=== PATIENT | male | born 1990 | race Two or more races ===

== ENCOUNTER 2020-03-12 14:54 | Inpatient (IN) | payer OTHER, SELFPAY ==
[2020-03-12 15:36] VITALS: BP 133/87; PULSE 86; RESP 18; TEMP 36.6; O2SAT 100; BMI 21.5
[2020-03-12 16:36] LABS: Glucose Urine UA NEG (NEG); Leukocyte Esterase Urine NEG (NEG); Nitrite Urine NEG (NEG); Urine Blood NEG (NEG); Urine Ketones NEG (NEG); Urine Protein NEG (NEG-TRACE)
[2020-03-12 16:52] LABS: Appearance Urine CLEAR; Color Urine YELLOW
[2020-03-12 16:57] LABS: Amphetamine Screen Urine Not Detected (Not Detect); Barbiturates, Urine Not Detected (Not Detect); Benzodiazepines Screen Urine Not Detected (Not Detect); Cannabinoid Screen Urine POSITIVE (Not Detect); Cocaine Screen Urine Not Detected (Not Detect); Opiate Screen Urine Not Detected (Not Detect); Phencyclidine Screen Urine Not Detected (Not Detect)
--- NOTE | 2020-03-12 18:52 | PC.NURSE ---
Call Mandy from [facility] if/when patient is discharged or transfered. [phone]
--- NOTE | 2020-03-12 20:01 | PC.NURSE ---
Patient was seen by provider, ordered N consult, N faxed/pending confirmation. Per provider patient is delusional thinking they are people out there to get him. DCF workers are here with patient talking, patient engaged. Will continue to monitor.
[2020-03-12 20:42] LABS: MANUAL DIFF FLAG NO
[2020-03-12 20:43] LABS: Basophils Absolute Auto 0.1 X10*3/uL (0.0-0.2); Basophils Percent Auto 0.5 % (0-2); Eosinophils Absolute Auto 0.2 X10*3/uL (0.0-0.4); Eosinophils Percent Auto 1.7 % (0-4); Hematocrit 42.7 % (42-52); Imm Gran Abs Auto 0.04 X10*3/uL (0.00-0.03); Imm Gran Pct Auto 0.4 % (0.0-0.4); Lymphocytes Absolute Auto 2.6 X10*3/uL (1.2-4.9); Lymphocytes Percent Auto 24.1 % (20-40); Mean Corpuscular HGB Conc 35.1 g/dl (31.0-36.0); Mean Corpuscular Hemoglobin 31.2 pg (27.0-33.0); Mean Corpuscular Volume 88.8 fL (80-98); Mean Platelet Volume 10.8 fL (9.4-12.4); Monocytes Absolute Auto 0.5 X10*3/uL (0.1-1.2); Monocytes Percent Auto 4.8 % (2-11); Neutrophils Absolute Auto 7.5 X10*3/uL (2.0-8.3); Neutrophils Percent Auto 68.5 % (45-73); Platelet Count 241 X10*3/uL (160-400); Red Blood Count 4.81 X10*6/uL (4.60-5.80); Red Cell Distribution Width 11.5 % (11.0-16.0); White Blood Count 10.9 X10*3/uL (4.8-10.8)
[2020-03-12 21:06] LABS: Anion Gap 13 (12-20); Blood Urea Nitrogen 15 mg/dL (9-16); Calcium 9.8 mg/dL (8.4-10.2); Carbon Dioxide 24 mmol/L (22-29); Chloride 108 mmol/L (96-108); Estimated Glomerular Filt Rate > 60; Ethanol < 10 mg/dL; Glucose Random 97 mg/dL (60-115); Potassium 4.3 mmol/l (3.3-5.1); Sodium 141 mmol/L (135-145)
--- NOTE | 2020-03-12 21:52 | PC.NURSE ---
Patient sitting in his bed, watching TV, seems upset over retraining order which was served by Elana NOVOA at 2130. Denied distress at this time. Denied SI/HI/AVH. [facility] called/spoke with Nercy/notified of not receiving referral/re-faxed/pending confirmation. Will continue to monitor.
--- NOTE | 2020-03-12 22:15 | PC.NURSE ---
ROSYN called once again for confirmation, spoke with Kevin, confirmed receipt of referral, ETA for clinician before midnight. Will continue to monitor.
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
--- NOTE | 2020-03-13 01:48 | PC.NURSE ---
MARGARITA finally finished assessing the patient, during the assessment spoke DCF staff, disposition updated, patient is on section 12 inpatient bed search, patient and provider made aware, will continue to monitor. Patient seemingly was not happy with disposition. Will continue to monitor.
--- NOTE | 2020-03-13 04:46 | PC.NURSE ---
Patient in bed appears sleeping, no distress observed/reported, respiration +/=/non-labored bilaterally. Will continue to monitor.
--- NOTE | 2020-03-13 06:33 | PC.NURSE ---
Patient in bed appears sleeping. No distress observed/reported. Respiration +/=/non-labored bilaterally. Will continue to monitor.
[2020-03-13 09:45] VITALS: BP 107/68; PULSE 84; RESP 18; TEMP 37.1; O2SAT 98
--- NOTE | 2020-03-13 13:46 | PC.NURSE ---
pt refusing to submit to Covid testing. Pt sts you can get my DNA from that. This RN and staff spoke to pt at length about Covid testing process. Pt eventually submitted to rapid Covid. Specimen sent lab.
--- NOTE | 2020-03-13 14:46 | PC.NURSE ---
nurse to nurse given to M5
[2020-03-13 14:55] LABS: SARS COV2 PCR INHOUSE Negative (Negative)
[2020-03-13 15:41] VITALS: BP 104/61; PULSE 82; RESP 14; TEMP 36.6; O2SAT 99
[2020-03-13 16:00] VITALS: BP 129/72; PULSE 75; RESP 18; TEMP 36.7; O2SAT 98
--- NOTE | 2020-03-13 17:17 | PC.NURSE ---
TRANSFER TO , COOPERATIVE AND CALM, SECURITY PRESENT TO TRANSPORT PT
[2020-03-13 18:00] VITALS: BP 129/72; PULSE 75; RESP 18; TEMP 36.7; O2SAT 98
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
[2020-03-14 05:50] VITALS: BP 111/59; PULSE 57; RESP 18; TEMP 36.4
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
[2020-03-14 19:22] VITALS: BP 123/82; PULSE 61; TEMP 36.6
[2020-03-14] MEDS: Acetaminophen 325 MG TABLET 650 MG PO (20:05)
[2020-03-15] MEDS: traZODone HCL 50 MG TABLET PO (00:18)
[2020-03-15] MEDS: hydrOXYzine HCL 25 MG TABLET PO ×2 (00:18→21:32)
[2020-03-15] MEDS: LORazepam 1 MG TABLET PO ×2 (00:18→21:33)
[2020-03-15 06:37] VITALS: BP 94/55; PULSE 51; RESP 16; TEMP 36.5; O2SAT 99
[2020-03-15 07:00] VITALS: BMI 19.9
--- NOTE | 2020-03-15 09:39 | HO.PSYCHPN ---
Subjective Subjective Date of Service: 03/15/20 Reason For Visit: Agitation Subjective Notes: Conditional Voluntary Interim History: Winston was extremely irritable and Medication Compliance: Yes Side effects from medications: No Attending Groups: No Review of Systems Acute medical concerns: No Medical Review of Systems: unchanged Mental Status Exam Mental Status Exam Patient Appearance: Well Grooomed Patient Orientation: Person, Place, Time and Situation Level of Consciousness: Awake and Appropriate Patient Behavior: Appropriate and Good Eye Contact Mood Description: Hostile and Angry Affect Description: Hostile, Anxious and Angry Patient Cognition Impaired: No Ability to Follow Directions: Good Speech Pattern: Clear Memory Description: Intact Delusions: Paranoid Ideation and Ideas of Reference Thought Process: Rumination Thought Content: positive for Perseveration, negative for Suicidal Ideation and negative for Homicidal Ideation Depressive Symptoms: Increased Fatigue Judgement: Poor Judgement and Insight: Lacks insight into his illness Diagnostics Vital Signs (24Hr): Vital Signs - 24 hr 03/14/20 19:22 03/15/20 06:37 Temperature 97.8 F 97.7 F Pulse Rate 61 51 Respiratory Rate 16 Blood Pressure 123/82 94/55 L Pulse Oximetry 99 Body Mass Index 21.5 Labs Results: 03/12/20 20:36 03/12/20 20:36 Labs: Laboratory Results - last 48 hr 03/13/20 13:30 Coronavirus (PCR) Negative Medications Medications Current Medications Generic Name Dose Route Start Last Admin Trade Name Freq PRN Reason Stop Dose Admin Acetaminophen 650 mg 03/13/20 20:09 03/14/20 20:05 Acetaminophen 325 Mg Tablet PO 650 mg Q6H PRN Administration Headache/Pain Mild Scale (1-3) Al Hydroxide/Mg Hydroxide 30 ml 03/13/20 20:09 Magnesium Hydrox/Alum Hydrox 30 Ml Oral.Susp PO Q6H PRN Heartburn/Nausea Hydroxyzine HCl 25 mg 03/13/20 20:09 03/15/20 00:18 Hydroxyzine Hcl 25 Mg Tablet PO 25 mg BEDTIME PRN Administration Anxiety Lorazepam 1 mg 03/13/20 20:17 03/15/20 00:18 Lorazepam 1 Mg Tablet PO 1 mg Q6H PRN Administration anxiety/restlessness Magnesium Hydroxide 30 ml 03/13/20 20:09 Milk Of Magnesia 30 Ml Oral.Susp PO DAILY PRN Constipation Nicotine Polacrilex 2 mg 03/13/20 20:09 Nicotine Polacrilex 2 Mg Gum BUCCAL Q2H PRN Nicotine Cravings Trazodone HCl 50 mg 03/13/20 20:09 03/15/20 00:18 Trazodone Hcl 50 Mg Tablet PO 50 mg BEDTIME PRN Administration Insomnia Valacyclovir HCl 500 mg 03/12/20 21:00 03/15/20 08:29 Valacycyclovir Hcl 500 Mg Tablet PO 500 mg Q12H MIKAYLA Administration Allergies Allergies Allergy/AdvReac Type Severity Reaction Status Date / Time strawberry [STRAWBERRY] Allergy Unknown TONGUE Verified 03/12/20 15:35 ITCHING AND THROAT Assessment & Plan Assessment & Plan (1) Impulse control disorder: Status: Acute Code(s): F63.9 - Impulse disorder, unspecified Assessment and Plan: Refusing medications Educate Coping skills Greater than 50% of the session was spent on counseling and/or coordination of care Patient educated on: diagnosis, medication risk/benefits and substance abuse Informed Consent: further education needed Reason for contiued inpatient stay Substantial Risk for: harm to others and med/psych decompensation
[2020-03-15 20:09] VITALS: BP 131/69; PULSE 81; TEMP 36.7
[2020-03-16 06:30] VITALS: BP 110/68; PULSE 71; RESP 14; TEMP 36.1; O2SAT 98
--- NOTE | 2020-03-16 10:32 | HO.PSYCHPN ---
Subjective Subjective Date of Service: 03/16/20 Reason For Visit: Agitation Subjective Notes: Conditional Voluntary Interim History: Winston was calmer and more engaged. He was willing to have a depakote trial. Medication Compliance: Yes Side effects from medications: No Attending Groups: No Review of Systems Acute medical concerns: No Medical Review of Systems: unchanged Mental Status Exam Mental Status Exam Patient Appearance: Well Grooomed Patient Orientation: Person, Place, Time and Situation Level of Consciousness: Awake and Appropriate Patient Behavior: Appropriate and Good Eye Contact Mood Description: Calm Affect Description: Calm and Flat Patient Cognition Impaired: No Ability to Follow Directions: Good Speech Pattern: Clear Memory Description: Intact Delusions: Paranoid Ideation and Ideas of Reference Thought Process: Rumination Thought Content: positive for Perseveration, negative for Suicidal Ideation and negative for Homicidal Ideation Depressive Symptoms: Increased Fatigue Judgement: Poor Judgement and Insight: Lacks insight into his illness Diagnostics Vital Signs (24Hr): Vital Signs - 24 hr 03/15/20 20:09 03/16/20 06:30 Temperature 98.1 F 97 F Pulse Rate 81 71 Respiratory Rate 14 Blood Pressure 131/69 110/68 Pulse Oximetry 98 Body Mass Index 19.9 Labs Results: 03/12/20 20:36 03/12/20 20:36 Medications Medications Current Medications Generic Name Dose Route Start Last Admin Trade Name Zeyadq PRN Reason Stop Dose Admin Acetaminophen 650 mg 03/13/20 20:09 03/14/20 20:05 Acetaminophen 325 Mg Tablet PO 650 mg Q6H PRN Administration Headache/Pain Mild Scale (1-3) Al Hydroxide/Mg Hydroxide 30 ml 03/13/20 20:09 Magnesium Hydrox/Alum Hydrox 30 Ml Oral.Susp PO Q6H PRN Heartburn/Nausea Hydroxyzine HCl 25 mg 03/13/20 20:09 03/15/20 21:32 Hydroxyzine Hcl 25 Mg Tablet PO 25 mg BEDTIME PRN Administration Anxiety Lorazepam 1 mg 03/13/20 20:17 03/15/20 21:33 Lorazepam 1 Mg Tablet PO 1 mg Q6H PRN Administration anxiety/restlessness Magnesium Hydroxide 30 ml 03/13/20 20:09 Milk Of Magnesia 30 Ml Oral.Susp PO DAILY PRN Constipation Nicotine Polacrilex 2 mg 03/13/20 20:09 Nicotine Polacrilex 2 Mg Gum BUCCAL Q2H PRN Nicotine Cravings Trazodone HCl 50 mg 03/13/20 20:09 03/15/20 00:18 Trazodone Hcl 50 Mg Tablet PO 50 mg BEDTIME PRN Administration Insomnia Valacyclovir HCl 500 mg 03/12/20 21:00 03/16/20 09:08 Valacycyclovir Hcl 500 Mg Tablet PO 500 mg Q12H MIKAYLA Administration Allergies Allergies Allergy/AdvReac Type Severity Reaction Status Date / Time strawberry [STRAWBERRY] Allergy Unknown TONGUE Verified 03/12/20 15:35 ITCHING AND THROAT Assessment & Plan Assessment & Plan (1) Impulse control disorder: Status: Acute Code(s): F63.9 - Impulse disorder, unspecified Assessment and Plan: Depakote trial Greater than 50% of the session was spent on counseling and/or coordination of care
[2020-03-16] MEDS: LORazepam 1 MG TABLET PO ×2 (11:45→21:26)
[2020-03-16] MEDS: Divalproex Sodium ER 500 MG TAB.ER.24H PO (21:21)
[2020-03-16 22:00] VITALS: BP 131/98; PULSE 95; TEMP 36.7
[2020-03-17] MEDS: hydrOXYzine HCL 25 MG TABLET PO ×2 (00:18→14:30)
[2020-03-17 11:50] VITALS: BP 122/73; PULSE 62; RESP 14; TEMP 36.7
--- NOTE | 2020-03-17 18:43 | HO.PSYCHPN ---
Subjective Subjective Date of Service: 03/17/20 Reason For Visit: Agitation Subjective Notes: Conditional Voluntary Interim History: Winston was calmer and more engaged. He tolerated the first dose of depakote He has not been sleeping that well and he would like a sleep aid Medication Compliance: Yes Side effects from medications: No Attending Groups: Yes Review of Systems Acute medical concerns: No Medical Review of Systems: unchanged Review of Systems Review of Systems Yes all other systems are reviewed and are negative Denies behavioral changes and Denies confusion Psychiatric: Denies behavioral changes and Denies confusion Mental Status Exam Mental Status Exam Patient Appearance: Well Grooomed Patient Orientation: Person, Place, Time and Situation Level of Consciousness: Awake and Appropriate Patient Behavior: Appropriate and Good Eye Contact Mood Description: Calm Affect Description: Calm Patient Cognition Impaired: No Ability to Follow Directions: Good Speech Pattern: Clear, Appropriate and Spontaneous Speech Memory Description: Intact Delusions: Paranoid Ideation and Ideas of Reference Thought Process: Rumination Thought Content: positive for Perseveration, negative for Suicidal Ideation and negative for Homicidal Ideation Judgement: Poor Judgement and Insight: Lacks insight into his illness Diagnostics Vital Signs (24Hr): Vital Signs - 24 hr 03/16/20 22:00 03/17/20 11:50 Temperature 98.1 F 98.0 F Pulse Rate 95 62 Respiratory Rate 14 Blood Pressure 131/98 H 122/73 Body Mass Index 19.9 Labs Results: 03/12/20 20:36 03/12/20 20:36 Medications Medications Current Medications Generic Name Dose Route Start Last Admin Trade Name Freq PRN Reason Stop Dose Admin Acetaminophen 650 mg 03/13/20 20:09 03/14/20 20:05 Acetaminophen 325 Mg Tablet PO 650 mg Q6H PRN Administration Headache/Pain Mild Scale (1-3) Al Hydroxide/Mg Hydroxide 30 ml 03/13/20 20:09 Magnesium Hydrox/Alum Hydrox 30 Ml Oral.Susp PO Q6H PRN Heartburn/Nausea Divalproex Sodium 500 mg 03/16/20 21:00 03/16/20 21:21 Divalproex Sodium Er 500 Mg Tab.Er.24h PO 500 mg BEDTIME MIKAYLA Administration Hydroxyzine HCl 25 mg 03/17/20 10:01 03/17/20 14:30 Hydroxyzine Hcl 25 Mg Tablet PO 25 mg Q4H PRN Administration Anxiety Lorazepam 1 mg 03/13/20 20:17 03/16/20 21:26 Lorazepam 1 Mg Tablet PO 1 mg Q6H PRN Administration anxiety/restlessness Magnesium Hydroxide 30 ml 03/13/20 20:09 Milk Of Magnesia 30 Ml Oral.Susp PO DAILY PRN Constipation Nicotine Polacrilex 2 mg 03/13/20 20:09 Nicotine Polacrilex 2 Mg Gum BUCCAL Q2H PRN Nicotine Cravings Trazodone HCl 50 mg 03/13/20 20:09 03/15/20 00:18 Trazodone Hcl 50 Mg Tablet PO 50 mg BEDTIME PRN Administration Insomnia Valacyclovir HCl 500 mg 03/12/20 21:00 03/17/20 09:10 Valacycyclovir Hcl 500 Mg Tablet PO 500 mg Q12H MIKAYLA Administration Allergies Allergies Allergy/AdvReac Type Severity Reaction Status Date / Time strawberry [STRAWBERRY] Allergy Unknown TONGUE Verified 03/12/20 15:35 ITCHING AND THROAT Assessment & Plan Assessment & Plan (1) Impulse control disorder: Status: Acute Code(s): F63.9 - Impulse disorder, unspecified Assessment and Plan: CT depakote trial Check labs in 3 days Education Skills Greater than 50% of the session was spent on counseling and/or coordination of care Patient educated on: diagnosis, medication risk/benefits and substance abuse Informed Consent: further education needed Reason for contiued inpatient stay Substantial Risk for: harm to others and rapid decompensation
[2020-03-17 21:18] VITALS: BP 128/67; PULSE 81; TEMP 36.9; O2SAT 100
[2020-03-17] MEDS: Divalproex Sodium ER 500 MG TAB.ER.24H PO (21:20)
[2020-03-17] MEDS: traZODone HCL 50 MG TABLET PO (21:21)
[2020-03-17] MEDS: LORazepam 1 MG TABLET PO (22:21)
[2020-03-18 07:22] VITALS: BP 94/46; PULSE 56; TEMP 36.5
[2020-03-18 09:31] VITALS: BP 94/46; PULSE 56; TEMP 36.5
[2020-03-18] MEDS: LORazepam 1 MG TABLET PO (11:13)
--- NOTE | 2020-03-18 19:23 | HO.PSYCHPN ---
Subjective Subjective Date of Service: 03/18/20 Reason For Visit: Agitation Subjective Notes: Conditional Voluntary Interim History: Winston was calmer and more engaged. He tolerated depakote. He did not like trazodone and it made him restless. He was encouraged to try vistaril. He is more committed to treatment. He will have depakote level checked tomorrow Medication Compliance: Yes Side effects from medications: No Attending Groups: Yes Review of Systems Acute medical concerns: No Medical Review of Systems: unchanged Review of Systems Review of Systems Yes all other systems are reviewed and are negative Mental Status Exam Mental Status Exam Patient Appearance: Well Grooomed Patient Orientation: Person, Place, Time and Situation Level of Consciousness: Awake and Appropriate Patient Behavior: Appropriate and Good Eye Contact Mood Description: Calm Affect Description: Calm Patient Cognition Impaired: No Ability to Follow Directions: Good Speech Pattern: Clear, Appropriate and Spontaneous Speech Memory Description: Intact Delusions: Not Present Thought Process: Rumination Thought Content: positive for Circumstantial, positive for Perseveration, negative for Suicidal Ideation and negative for Homicidal Ideation Judgement: Poor Judgement and Insight: Lacks insight into his illness Diagnostics Vital Signs (24Hr): Vital Signs - 24 hr 03/17/20 21:18 03/18/20 07:22 03/18/20 09:31 Temperature 98.5 F 97.7 F 97.7 F Pulse Rate 81 56 56 Blood Pressure 128/67 94/46 L 94/46 L Pulse Oximetry 100 Body Mass Index 19.9 Labs Results: 03/12/20 20:36 03/12/20 20:36 Medications Medications Current Medications Generic Name Dose Route Start Last Admin Trade Name Freq PRN Reason Stop Dose Admin Acetaminophen 650 mg 03/13/20 20:09 03/14/20 20:05 Acetaminophen 325 Mg Tablet PO 650 mg Q6H PRN Administration Headache/Pain Mild Scale (1-3) Al Hydroxide/Mg Hydroxide 30 ml 03/13/20 20:09 Magnesium Hydrox/Alum Hydrox 30 Ml Oral.Susp PO Q6H PRN Heartburn/Nausea Divalproex Sodium 500 mg 03/16/20 21:00 03/17/20 21:20 Divalproex Sodium Er 500 Mg Tab.Er.24h PO 500 mg BEDTIME MIKAYLA Administration Hydroxyzine HCl 25 mg 03/17/20 10:01 10/10/20 14:30 Hydroxyzine Hcl 25 Mg Tablet PO 25 mg Q4H PRN Administration Anxiety Hydroxyzine HCl 50 mg 03/18/20 21:00 Hydroxyzine Hcl 50 Mg Tablet PO BEDTIME MRX1 MIKAYLA Lorazepam 1 mg 03/13/20 20:17 03/18/20 11:13 Lorazepam 1 Mg Tablet PO 1 mg Q6H PRN Administration anxiety/restlessness Magnesium Hydroxide 30 ml 03/13/20 20:09 Milk Of Magnesia 30 Ml Oral.Susp PO DAILY PRN Constipation Nicotine Polacrilex 2 mg 03/13/20 20:09 Nicotine Polacrilex 2 Mg Gum BUCCAL Q2H PRN Nicotine Cravings Valacyclovir HCl 500 mg 03/12/20 21:00 03/18/20 08:55 Valacycyclovir Hcl 500 Mg Tablet PO 500 mg Q12H MIKAYLA Administration Allergies Allergies Allergy/AdvReac Type Severity Reaction Status Date / Time strawberry [STRAWBERRY] Allergy Unknown TONGUE Verified 03/12/20 15:35 ITCHING AND THROAT Assessment & Plan Assessment & Plan (1) Impulse control disorder: Status: Acute Code(s): F63.9 - Impulse disorder, unspecified Assessment and Plan: CT depakote trial Check level in am and increase if low Skills Groups Greater than 50% of the session was spent on counseling and/or coordination of care Patient educated on: diagnosis, medication risk/benefits, substance abuse and therapeutic strategies Reason for contiued inpatient stay Substantial Risk for: harm to others, inability to function and rapid decompensation
[2020-03-18 22:00] VITALS: BP 145/90; PULSE 100; TEMP 36.5; O2SAT 98
[2020-03-18] MEDS: hydrOXYzine HCL 50 MG TABLET PO (22:08)
[2020-03-18] MEDS: Divalproex Sodium ER 500 MG TAB.ER.24H PO (22:08)
[2020-03-19 07:09] VITALS: BP 126/60; PULSE 60; RESP 18; TEMP 36.8
[2020-03-19 07:11] VITALS: BP 126/60; PULSE 60; RESP 18; TEMP 36.8
--- NOTE | 2020-03-19 10:32 | HO.PSYCHPN ---
Subjective Subjective Reason For Visit: Agitation Interim History: MORE STABLE FUTURE ORIENTED Review of Systems Denies behavioral changes and Denies confusion Psychiatric: Denies behavioral changes and Denies confusion Mental Status Exam Mental Status Exam Patient Appearance: Well Grooomed Patient Orientation: Person, Place, Time and Situation Level of Consciousness: Awake and Appropriate Patient Behavior: Appropriate and Good Eye Contact Mood Description: Calm Affect Description: Calm Patient Cognition Impaired: No Ability to Follow Directions: Good Speech Pattern: Clear, Appropriate and Spontaneous Speech Memory Description: Intact Thought Process: Intact Depressive Symptoms: Increased Anxiety, Feelings of Guilt and Difficulty Concentrating Judgement: Good Diagnostics Vital Signs (24Hr): Vital Signs - 24 hr 03/18/20 22:00 03/19/20 07:09 03/19/20 07:11 Temperature 97.7 F 98.2 F 98.2 F Pulse Rate 100 60 60 Respiratory Rate 18 18 Blood Pressure 145/90 H 126/60 126/60 Pulse Oximetry 98 Body Mass Index 19.9 Labs Results: 03/12/20 20:36 03/12/20 20:36 Medications Medications Current Medications Generic Name Dose Route Start Last Admin Trade Name Freq PRN Reason Stop Dose Admin Acetaminophen 650 mg 03/13/20 20:09 03/14/20 20:05 Acetaminophen 325 Mg Tablet PO 650 mg Q6H PRN Administration Headache/Pain Mild Scale (1-3) Al Hydroxide/Mg Hydroxide 30 ml 03/13/20 20:09 Magnesium Hydrox/Alum Hydrox 30 Ml Oral.Susp PO Q6H PRN Heartburn/Nausea Divalproex Sodium 500 mg 03/16/20 21:00 03/18/20 22:08 Divalproex Sodium Er 500 Mg Tab.Er.24h PO 500 mg BEDTIME MIKAYLA Administration Hydroxyzine HCl 25 mg 03/17/20 10:01 03/17/20 14:30 Hydroxyzine Hcl 25 Mg Tablet PO 25 mg Q4H PRN Administration Anxiety Hydroxyzine HCl 50 mg 03/18/20 21:00 03/19/20 06:45 Hydroxyzine Hcl 50 Mg Tablet PO Not Given BEDTIME MRX1 MIKAYLA Lorazepam 1 mg 03/18/20 20:39 Lorazepam 1 Mg Tablet PO Q6H PRN Anxiety Magnesium Hydroxide 30 ml 03/13/20 20:09 Milk Of Magnesia 30 Ml Oral.Susp PO DAILY PRN Constipation Nicotine Polacrilex 2 mg 03/13/20 20:09 Nicotine Polacrilex 2 Mg Gum BUCCAL Q2H PRN Nicotine Cravings Valacyclovir HCl 500 mg 03/12/20 21:00 03/19/20 09:19 Valacycyclovir Hcl 500 Mg Tablet PO 500 mg Q12H MIKAYLA Administration Allergies Allergies Allergy/AdvReac Type Severity Reaction Status Date / Time strawberry [STRAWBERRY] Allergy Unknown TONGUE Verified 03/12/20 15:35 ITCHING AND THROAT Assessment & Plan Assessment & Plan (1) Impulse control disorder: Status: Acute Code(s): F63.9 - Impulse disorder, unspecified Assessment and Plan: CT depakote trial Check level in am and increase if low Skills Groups Greater than 50% of the session was spent on counseling and/or coordination of care
[2020-03-19 16:32] VITALS: BP 140/63; PULSE 80; TEMP 36.6
[2020-03-19] MEDS: hydrOXYzine HCL 50 MG TABLET PO (21:56)
[2020-03-19] MEDS: Divalproex Sodium ER 500 MG TAB.ER.24H PO (21:56)
--- NOTE | 2020-03-19 22:59 | HO.PSYCHPN ---
Subjective Subjective Reason For Visit: Agitation Subjective Notes: Conditional Voluntary Interim History: patient come cooperative of Depakote Medication Compliance: Yes Review of Systems Denies behavioral changes and Denies confusion Psychiatric: Denies behavioral changes and Denies confusion Mental Status Exam Mental Status Exam Patient Appearance: Well Grooomed Patient Orientation: Person, Place, Time and Situation Level of Consciousness: Awake and Appropriate Patient Behavior: Appropriate and Good Eye Contact Mood Description: Calm Affect Description: Calm Patient Cognition Impaired: No Ability to Follow Directions: Good Speech Pattern: Clear, Appropriate and Spontaneous Speech Memory Description: Intact Diagnostics Vital Signs (24Hr): Vital Signs - 24 hr 03/19/20 07:09 03/19/20 07:11 03/19/20 16:32 Temperature 98.2 F 98.2 F 97.9 F Pulse Rate 60 60 80 Respiratory Rate 18 18 Blood Pressure 126/60 126/60 140/63 H Body Mass Index 19.9 Labs Results: 03/12/20 20:36 03/12/20 20:36 Medications Medications Current Medications Generic Name Dose Route Start Last Admin Trade Name Freq PRN Reason Stop Dose Admin Acetaminophen 650 mg 03/13/20 20:09 03/14/20 20:05 Acetaminophen 325 Mg Tablet PO 650 mg Q6H PRN Administration Headache/Pain Mild Scale (1-3) Al Hydroxide/Mg Hydroxide 30 ml 03/13/20 20:09 Magnesium Hydrox/Alum Hydrox 30 Ml Oral.Susp PO Q6H PRN Heartburn/Nausea Divalproex Sodium 500 mg 03/16/20 21:00 03/19/20 21:56 Divalproex Sodium Er 500 Mg Tab.Er.24h PO 500 mg BEDTIME MIKAYLA Administration Hydroxyzine HCl 25 mg 03/17/20 10:01 03/17/20 14:30 Hydroxyzine Hcl 25 Mg Tablet PO 25 mg Q4H PRN Administration Anxiety Hydroxyzine HCl 50 mg 03/18/20 21:00 03/19/20 21:56 Hydroxyzine Hcl 50 Mg Tablet PO 50 mg BEDTIME MRX1 MIKAYLA Administration Lorazepam 1 mg 03/18/20 20:39 Lorazepam 1 Mg Tablet PO Q6H PRN Anxiety Magnesium Hydroxide 30 ml 03/13/20 20:09 Milk Of Magnesia 30 Ml Oral.Susp PO DAILY PRN Constipation Nicotine Polacrilex 2 mg 03/13/20 20:09 Nicotine Polacrilex 2 Mg Gum BUCCAL Q2H PRN Nicotine Cravings Valacyclovir HCl 500 mg 03/12/20 21:00 03/19/20 21:56 Valacycyclovir Hcl 500 Mg Tablet PO 500 mg Q12H MIKAYLA Administration Allergies Allergies Allergy/AdvReac Type Severity Reaction Status Date / Time strawberry [STRAWBERRY] Allergy Unknown TONGUE Verified 03/12/20 15:35 ITCHING AND THROAT Assessment & Plan Assessment & Plan (1) Impulse control disorder: Status: Acute Code(s): F63.9 - Impulse disorder, unspecified Assessment and Plan: continue Depakote Greater than 50% of the session was spent on counseling and/or coordination of care
[2020-03-20 06:26] VITALS: BP 113/67; PULSE 18; RESP 18; TEMP 36.2; O2SAT 98
[2020-03-20 08:15] LABS: Valproate 67.2 mcg/mL (50.0-100.0)
--- NOTE | 2020-03-20 15:49 | HO.PSYCHPN ---
Subjective Subjective Date of Service: 03/20/20 Reason For Visit: Agitation Subjective Notes: Conditional Voluntary Interim History: Winston continues to be calmer and less labile. Depakote level was 69.5 He agrees to an increase. He is more reflective Medication Compliance: Yes Side effects from medications: No Attending Groups: Yes Review of Systems Acute medical concerns: No Medical Review of Systems: unchanged Review of Systems Denies behavioral changes and Denies confusion Psychiatric: Denies behavioral changes and Denies confusion Mental Status Exam Mental Status Exam Patient Appearance: Well Grooomed Patient Orientation: Person, Place, Time and Situation Level of Consciousness: Awake and Appropriate Patient Behavior: Appropriate and Good Eye Contact Mood Description: Calm Affect Description: Calm Patient Cognition Impaired: No Ability to Follow Directions: Good Speech Pattern: Clear, Appropriate and Spontaneous Speech Memory Description: Intact Hallucinations: None Delusions: Not Present Thought Process: Goal Oriented Thought Content: positive for Circumstantial, negative for Suicidal Ideation and negative for Homicidal Ideation Judgement: Fair Diagnostics Vital Signs (24Hr): Vital Signs - 24 hr 03/19/20 16:32 03/20/20 06:26 Temperature 97.9 F 97.1 F Pulse Rate 80 18 L Respiratory Rate 18 Blood Pressure 140/63 H 113/67 Pulse Oximetry 98 Body Mass Index 19.9 Labs Results: 03/12/20 20:36 03/12/20 20:36 Labs: Laboratory Results - last 48 hr 03/19/20 08:20 Valproic Acid 67.2 Medications Medications Current Medications Generic Name Dose Route Start Last Admin Trade Name Freq PRN Reason Stop Dose Admin Acetaminophen 650 mg 03/13/20 20:09 03/14/20 20:05 Acetaminophen 325 Mg Tablet PO 650 mg Q6H PRN Administration Headache/Pain Mild Scale (1-3) Al Hydroxide/Mg Hydroxide 30 ml 03/13/20 20:09 Magnesium Hydrox/Alum Hydrox 30 Ml Oral.Susp PO Q6H PRN Heartburn/Nausea Divalproex Sodium 750 mg 03/20/20 21:00 Divalproex Sodium Er 250 Mg Tab.Er.24h PO BEDTIME MIKAYLA Hydroxyzine HCl 25 mg 03/17/20 10:01 03/17/20 14:30 Hydroxyzine Hcl 25 Mg Tablet PO 25 mg Q4H PRN Administration Anxiety Hydroxyzine HCl 50 mg 03/18/20 21:00 03/19/20 23:07 Hydroxyzine Hcl 50 Mg Tablet PO Not Given BEDTIME MRX1 MIKAYLA Lorazepam 1 mg 03/18/20 20:39 Lorazepam 1 Mg Tablet PO Q6H PRN Anxiety Magnesium Hydroxide 30 ml 03/13/20 20:09 Milk Of Magnesia 30 Ml Oral.Susp PO DAILY PRN Constipation Nicotine Polacrilex 2 mg 03/13/20 20:09 Nicotine Polacrilex 2 Mg Gum BUCCAL Q2H PRN Nicotine Cravings Valacyclovir HCl 500 mg 03/12/20 21:00 03/20/20 08:47 Valacycyclovir Hcl 500 Mg Tablet PO 500 mg Q12H MIKAYLA Administration Allergies Allergies Allergy/AdvReac Type Severity Reaction Status Date / Time strawberry [STRAWBERRY] Allergy Unknown TONGUE Verified 03/12/20 15:35 ITCHING AND THROAT Assessment & Plan Assessment & Plan (1) Impulse control disorder: Status: Acute Code(s): F63.9 - Impulse disorder, unspecified Assessment and Plan: Increase depakote Encourage patient to look for family or friends that he can live with after DC due to restraining order. Groups Skills Greater than 50% of the session was spent on counseling and/or coordination of care Patient educated on: diagnosis and medication risk/benefits Informed Consent: further education needed Reason for contiued inpatient stay Substantial Risk for: rapid decompensation
[2020-03-20 18:18] VITALS: BP 119/59; PULSE 76; TEMP 36.6
[2020-03-20] MEDS: Divalproex Sodium ER 250 MG TAB.ER.24H 750 MG PO (21:23)
[2020-03-20] MEDS: hydrOXYzine HCL 50 MG TABLET PO ×2 (21:24→23:06)
[2020-03-21 06:32] VITALS: BP 119/57; PULSE 63; RESP 14; TEMP 36.4; O2SAT 98
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
--- NOTE | 2020-03-21 10:35 | PC.ADMIT ---
PT REPORT TO T/W THAT HE HAD TAKEN A HYDROXYZINE ON 03/19, BUT THEN SPIT IT OUT AND SAVED IT , THEN TOOK IT THE NEXT DAY (03/20). PT INFORMED TO REFUSE THE NEXT TIME HE DOESN'T WANT A MEDICATION AND AVOID LEAVE THE MEDICATION AROUND. PT SAYS HE TOOK IT THE NEXT DAY, BUT CAN'T SAY WHEN. PT DENIES THAT HE WAS TRYING TO HARM SELF OR SI. PT SAYS, I WON'T DO IT AGAIN.
[2020-03-21] MEDS: Divalproex Sodium ER 250 MG TAB.ER.24H 750 MG PO (20:28)
[2020-03-21 21:05] VITALS: BP 135/83; PULSE 87; TEMP 36.8
--- NOTE | 2020-03-21 21:46 | PC.NURSE ---
Pt irritable this pm. Pt refused to speak with his contact. Pt requested to speak with Dee,business unit leader. Dee spoke with patient and he appoligized to her for cheeking a vistaril. Pt was still irritable this pm when this RN went to give him his meds. Would not discuss what was troubling him. Pt only took his Valcyclovir and his Depakote. Pt in bed most of evening.
[2020-03-22] MEDS: Magnesium Hydrox/Alum Hydrox 30 ML ORAL.SUSP PO (05:04)
[2020-03-22 07:00] VITALS: BMI 19.7
[2020-03-22 08:12] VITALS: BP 118/73; PULSE 81; TEMP 36.5
--- NOTE | 2020-03-22 15:48 | HO.PSYCHPN ---
Subjective Subjective Date of Service: 03/22/20 Reason For Visit: Agitation Subjective Notes: Conditional Voluntary Interim History: Winston continues to be calmer and less labile. He has been able to contain his anger. He is finding that he gets some nausea with depakote. We agreed to change to a different formula He hopes to be able to stay with a friend on DC. Tentative DC 03/23/20. Medication Compliance: Yes Side effects from medications: No Attending Groups: Yes Review of Systems Acute medical concerns: No Medical Review of Systems: unchanged Review of Systems Denies behavioral changes and Denies confusion Psychiatric: Denies behavioral changes and Denies confusion Mental Status Exam Mental Status Exam Patient Appearance: Well Grooomed Patient Orientation: Person, Place, Time and Situation Level of Consciousness: Awake and Appropriate Patient Behavior: Appropriate and Good Eye Contact Mood Description: Calm Affect Description: Calm Patient Cognition Impaired: No Ability to Follow Directions: Good Speech Pattern: Clear, Appropriate and Spontaneous Speech Memory Description: Intact Hallucinations: None Delusions: Not Present Thought Process: Goal Oriented Thought Content: positive for Circumstantial, negative for Suicidal Ideation and negative for Homicidal Ideation Judgement: Fair Diagnostics Vital Signs (24Hr): Vital Signs - 24 hr 03/21/20 21:05 03/22/20 08:12 Temperature 98.2 F 97.7 F Pulse Rate 87 81 Blood Pressure 135/83 118/73 Body Mass Index 19.7 Labs Results: 03/12/20 20:36 03/12/20 20:36 Medications Medications Current Medications Generic Name Dose Route Start Last Admin Trade Name Freq PRN Reason Stop Dose Admin Acetaminophen 650 mg 03/13/20 20:09 03/14/20 20:05 Acetaminophen 325 Mg Tablet PO 650 mg Q6H PRN Administration Headache/Pain Mild Scale (1-3) Al Hydroxide/Mg Hydroxide 30 ml 03/13/20 20:09 03/22/20 05:04 Magnesium Hydrox/Alum Hydrox 30 Ml Oral.Susp PO 30 ml Q6H PRN Administration Heartburn/Nausea Divalproex Sodium 750 mg 03/20/20 21:00 03/21/20 20:28 Divalproex Sodium Er 250 Mg Tab.Er.24h PO 750 mg BEDTIME MIKAYLA Administration Hydroxyzine HCl 25 mg 03/17/20 10:01 03/17/20 14:30 Hydroxyzine Hcl 25 Mg Tablet PO 25 mg Q4H PRN Administration Anxiety Hydroxyzine HCl 50 mg 03/18/20 21:00 03/22/20 05:48 Hydroxyzine Hcl 50 Mg Tablet PO Not Given BEDTIME MRX1 MIKAYLA Lorazepam 1 mg 03/18/20 20:39 Lorazepam 1 Mg Tablet PO Q6H PRN Anxiety Magnesium Hydroxide 30 ml 03/13/20 20:09 Milk Of Magnesia 30 Ml Oral.Susp PO DAILY PRN Constipation Nicotine Polacrilex 2 mg 03/13/20 20:09 Nicotine Polacrilex 2 Mg Gum BUCCAL Q2H PRN Nicotine Cravings Valacyclovir HCl 500 mg 03/12/20 21:00 03/22/20 09:02 Valacycyclovir Hcl 500 Mg Tablet PO 500 mg Q12H MIKAYLA Administration Allergies Allergies Allergy/AdvReac Type Severity Reaction Status Date / Time strawberry [STRAWBERRY] Allergy Unknown TONGUE Verified 03/12/20 15:35 ITCHING AND THROAT Assessment & Plan Assessment & Plan (1) Impulse control disorder: Status: Acute Code(s): F63.9 - Impulse disorder, unspecified Assessment and Plan: Change to Depakote IR Anticipate DC in am Greater than 50% of the session was spent on counseling and/or coordination of care Patient educated on: diagnosis, medication risk/benefits and substance abuse Informed Consent: further education needed Reason for contiued inpatient stay Substantial Risk for: rapid decompensation
[2020-03-22] MEDS: Divalproex Sodium 250 MG TABLET.DR 750 MG PO (21:47)
--- NOTE | 2020-03-22 21:49 | PC.NURSE ---
patient accepted 500 mg of prescribed 750 mg of depakote
[2020-03-22 21:57] VITALS: BP 143/74; PULSE 99; TEMP 36.5; O2SAT 100
[2020-03-23 06:40] VITALS: BP 122/63; PULSE 69; RESP 16; TEMP 36.2; O2SAT 100
--- NOTE | 2020-03-23 09:26 | HO.PSYCHPN ---
Subjective Subjective Reason For Visit: Agitation Review of Systems Denies behavioral changes and Denies confusion Psychiatric: Denies behavioral changes and Denies confusion Diagnostics Vital Signs (24Hr): Vital Signs - 24 hr 03/22/20 21:57 03/23/20 06:40 Temperature 97.7 F 97.2 F Pulse Rate 99 69 Respiratory Rate 16 Blood Pressure 143/74 H 122/63 Pulse Oximetry 100 100 Body Mass Index 19.7 Labs Results: 03/12/20 20:36 03/12/20 20:36 Labs: Laboratory Results - last 48 hr 03/23/20 08:03 Valproic Acid 95.0 Medications Medications Current Medications Generic Name Dose Route Start Last Admin Trade Name Freq PRN Reason Stop Dose Admin Acetaminophen 650 mg 03/13/20 20:09 03/14/20 20:05 Acetaminophen 325 Mg Tablet PO 650 mg Q6H PRN Administration Headache/Pain Mild Scale (1-3) Al Hydroxide/Mg Hydroxide 30 ml 03/13/20 20:09 03/22/20 05:04 Magnesium Hydrox/Alum Hydrox 30 Ml Oral.Susp PO 30 ml Q6H PRN Administration Heartburn/Nausea Divalproex Sodium 750 mg 03/22/20 21:00 03/22/20 21:47 Divalproex Sodium 250 Mg Tablet.Dr PO 500 mg BEDTIME MIKAYLA Administration Hydroxyzine HCl 25 mg 03/17/20 10:01 03/17/20 14:30 Hydroxyzine Hcl 25 Mg Tablet PO 25 mg Q4H PRN Administration Anxiety Hydroxyzine HCl 50 mg 03/18/20 21:00 03/23/20 08:23 Hydroxyzine Hcl 50 Mg Tablet PO Not Given BEDTIME MRX1 MIKAYLA Lorazepam 1 mg 03/18/20 20:39 Lorazepam 1 Mg Tablet PO Q6H PRN Anxiety Magnesium Hydroxide 30 ml 03/13/20 20:09 Milk Of Magnesia 30 Ml Oral.Susp PO DAILY PRN Constipation Nicotine Polacrilex 2 mg 03/13/20 20:09 Nicotine Polacrilex 2 Mg Gum BUCCAL Q2H PRN Nicotine Cravings Valacyclovir HCl 500 mg 03/12/20 21:00 03/23/20 08:23 Valacycyclovir Hcl 500 Mg Tablet PO Not Given Q12H MIKAYLA Allergies Allergies Allergy/AdvReac Type Severity Reaction Status Date / Time strawberry [STRAWBERRY] Allergy Unknown TONGUE Verified 03/12/20 15:35 ITCHING AND THROAT Assessment & Plan Greater than 50% of the session was spent on counseling and/or coordination of care
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
== END 2020-03-23 11:01 | disposition home or self-care (01) | DRG 758 ==
LOC: HO.ED 03-13 13:08 → HO.PM5 03-13 17:18
PROVIDERS: Nurse Practitioner Family; Physician Assistant; Admitting Provider Psychiatry & Neurology Psychiatry; Emergency Provider Emergency Medicine; PCP Internal Medicine; Visit Provider Psychiatry & Neurology Psychiatry
DX: F63.9 Impulse disorder, unspecified (principal); F23 Brief psychotic disorder; Z20.828 Contact with and (suspected) exposure to other viral communicable diseases; Z79.899 Other long term (current) drug therapy
CPT/HCPCS: 36415; 80048; 80164; 80307; 80320; 81003; 85025; 87635; 99232; 99284; 99285

== ENCOUNTER 2020-03-30 13:19 | Outpatient (REF) | payer OTHER, SELFPAY ==
[2020-03-30 14:06] LABS: MANUAL DIFF FLAG NO
[2020-03-30 14:12] LABS: Basophils Absolute Auto 0.1 X10*3/uL (0.0-0.2); Basophils Percent Auto 0.8 % (0-2); Eosinophils Absolute Auto 0.3 X10*3/uL (0.0-0.4); Eosinophils Percent Auto 3.4 % (0-4); Hematocrit 44.1 % (42-52); Hemoglobin 15.2 g/dl (14.0-18.0); Imm Gran Abs Auto 0.04 X10*3/uL (0.00-0.03); Imm Gran Pct Auto 0.4 % (0.0-0.4); Lymphocytes Absolute Auto 2.7 X10*3/uL (1.2-4.9); Lymphocytes Percent Auto 29.7 % (20-40); Mean Corpuscular HGB Conc 34.5 g/dl (31.0-36.0); Monocytes Absolute Auto 0.8 X10*3/uL (0.1-1.2); Monocytes Percent Auto 8.6 % (2-11); Neutrophils Absolute Auto 5.2 X10*3/uL (2.0-8.3); Neutrophils Percent Auto 57.1 % (45-73); Platelet Count 258 X10*3/uL (160-400); Red Cell Distribution Width 11.6 % (11.0-16.0); White Blood Count 9.1 X10*3/uL (4.8-10.8)
[2020-03-30 14:46] LABS: Anion Gap 14 (12-20); Blood Urea Nitrogen 16 mg/dL (9-16); Calcium 10.1 mg/dL (8.4-10.2); Carbon Dioxide 26 mmol/L (22-29); Chloride 105 mmol/L (96-108); Estimated Glomerular Filt Rate > 60; Glucose Fasting 90 mg/dL (60-99); Potassium 5.1 mmol/l (3.3-5.1); Sodium 140 mmol/L (135-145)
[2020-03-30 14:58] LABS: TSH reflex Free T4 1.34 mIU/mL (0.32-4.0)
[2020-03-30 14:59] LABS: Valproate < 2.0 mcg/mL (50.0-100.0)
== END 2020-03-30 13:20 | disposition home or self-care (01) ==
LOC: HO.LAB 13:19
PROVIDERS: Nurse Practitioner Family; PCP Internal Medicine; Visit Provider Psychiatry & Neurology Psychiatry
DX: F63.9 Impulse disorder, unspecified (principal)
CPT/HCPCS: 36415; 80048; 80164; 84443; 85025

== ENCOUNTER 2020-05-26 09:26 | Outpatient (REF) | payer OTHER, SELFPAY | END 2020-05-26 09:27 | disposition home or self-care (01) | LOC: HO.LAB 09:26 | PROVIDERS: Visit Provider Internal Medicine | DX: Z20.828 Contact with and (suspected) exposure to other viral communicable diseases (principal) | CPT/HCPCS: C9803; U0003 ==

== ENCOUNTER 2020-06-12 10:41 | Outpatient (REF) | payer OTHER, SELFPAY | END 2020-06-12 10:42 | disposition home or self-care (01) | LOC: HO.LAB 10:41 | PROVIDERS: Visit Provider Internal Medicine | DX: Z20.822 Contact with and (suspected) exposure to COVID-19 (principal) | CPT/HCPCS: 36415; C9803; U0003 ==

== ENCOUNTER 2020-06-23 09:14 | Outpatient (REF) | payer OTHER, SELFPAY ==
[2020-06-23 09:39] LABS: MANUAL DIFF FLAG NO
[2020-06-23 09:56] LABS: Basophils Percent Auto 0.5 % (0-2); Eosinophils Absolute Auto 0.2 X10*3/uL (0.0-0.4); Eosinophils Percent Auto 2.8 % (0-4); Hematocrit 44.4 % (42-52); Hemoglobin 15.3 g/dl (14.0-18.0); Imm Gran Abs Auto 0.03 X10*3/uL (0.00-0.03); Imm Gran Pct Auto 0.4 % (0.0-0.4); Lymphocytes Absolute Auto 2.4 X10*3/uL (1.2-4.9); Lymphocytes Percent Auto 30.8 % (20-40); Mean Corpuscular HGB Conc 34.5 g/dl (31.0-36.0); Mean Corpuscular Hemoglobin 31.1 pg (27.0-33.0); Mean Corpuscular Volume 90.2 fL (80-98); Mean Platelet Volume 10.8 fL (9.4-12.4); Monocytes Absolute Auto 0.7 X10*3/uL (0.1-1.2); Monocytes Percent Auto 8.6 % (2-11); Neutrophils Absolute Auto 4.5 X10*3/uL (2.0-8.3); Neutrophils Percent Auto 56.9 % (45-73); Platelet Count 265 X10*3/uL (160-400); Red Blood Count 4.92 X10*6/uL (4.60-5.80); Red Cell Distribution Width 11.3 % (11.0-16.0); White Blood Count 7.9 X10*3/uL (4.8-10.8)
[2020-06-23 10:02] LABS: Alanine Aminotransferase 14 U/L (0-40); Alkaline Phosphatase 67 U/L (39-117); Anion Gap 11 (12-20); Aspartate Amino Transferase 17 U/L (5-37); Bilirubin Total 0.8 mg/dL (0.0-1.0); Blood Urea Nitrogen 17 mg/dL (9-16); Calcium 9.8 mg/dL (8.4-10.2); Carbon Dioxide 29 mmol/L (22-29); Chloride 105 mmol/L (96-108); Cholesterol 145 mg/dL; Estimated Glomerular Filt Rate > 60; Glucose Fasting 93 mg/dL (60-99); HDL Cholesterol 49 mg/dL; LDL Cholesterol Calculated 83 mg/dl; Potassium 4.2 mmol/l (3.3-5.1); Sodium 141 mmol/L (135-145); Triglycerides 66 mg/dL
[2020-06-23 10:22] LABS: Thyroid Stimulating Hormone 1.42 uIU/mL (0.32-4.0)
[2020-06-25 08:28] LABS: HIV AB/AG Nonreactive (Nonreactive); HIV Num 1 0.06 S/CO (0.00-0.99)
[2020-06-25 08:31] LABS: Syphilis Screen Nonreactive (Nonreactive)
[2020-06-25 09:08] LABS: ~HepC Num1 0.15 S/CO (0.00-0.79); ~Hepatitis C Antibody Nonreactive (Nonreactive)
[2020-06-25 18:33] LABS: Herpes Simplex Type 1 IgG <0.90 index
== END 2020-06-23 09:15 | disposition home or self-care (01) ==
LOC: HO.LAB 09:14
PROVIDERS: PCP Internal Medicine; Visit Provider Internal Medicine
DX: Z00.00 Encounter for general adult medical examination without abnormal findings (principal); E11.9 Type 2 diabetes mellitus without complications; E03.9 Hypothyroidism, unspecified; Z20.2 Contact with and (suspected) exposure to infections with a predominantly sexual mode of transmission
CPT/HCPCS: 36415; 80053; 80061; 84443; 85025; 86695; 86696; 86780; 86803; 87389

== ENCOUNTER 2020-07-24 14:00 | Outpatient (REF) | payer OTHER, SELFPAY ==
[2020-07-25 08:31] LABS: HIV AB/AG Nonreactive (Nonreactive); HIV Num 1 0.06 S/CO (0.00-0.99); ~Hepatitis C Antibody Nonreactive (Nonreactive)
[2020-07-25 08:57] LABS: Syphilis Screen Nonreactive (Nonreactive)
== END 2020-07-24 14:01 | disposition home or self-care (01) ==
LOC: HO.LAB 14:00
PROVIDERS: PCP Internal Medicine; Visit Provider Internal Medicine
DX: Z20.2 Contact with and (suspected) exposure to infections with a predominantly sexual mode of transmission (principal)
CPT/HCPCS: 36415; 86780; 86803; 87389

== ENCOUNTER 2020-09-12 14:01 | Outpatient (REF) | payer OTHER, SELFPAY ==
[2020-09-12 14:28] LABS: COVID-19 Test Negative (Negative); IDNOW Serial# 08D9AD1C
== END 2020-09-12 14:02 | disposition home or self-care (01) ==
LOC: HO.LAB 14:01
PROVIDERS: Visit Provider Internal Medicine
DX: Z20.822 Contact with and (suspected) exposure to COVID-19 (principal)
CPT/HCPCS: 36415; 87635; C9803

== ENCOUNTER 2021-08-01 14:30 | Outpatient (REF) | payer OTHER, SELFPAY ==
[2021-08-01 15:08] LABS: COVID-19 Test Positive (Negative); IDNOW Serial# 08D9AD1C
== END 2021-08-01 14:31 | disposition home or self-care (01) ==
LOC: HO.LAB 14:30
PROVIDERS: Visit Provider Internal Medicine
DX: Z20.822 Contact with and (suspected) exposure to COVID-19 (principal)
CPT/HCPCS: 87635; C9803

== ENCOUNTER 2022-01-22 20:00 | Emergency (ER) | payer OTHER, SELFPAY ==
--- NOTE | ~2022-01-22 | XR_ITS ---
EXAMINATION: XR HAND, LEFT CLINICAL INFORMATION: Left index finger injury COMPARISON: None TECHNIQUE: PA, lateral, and oblique views of the left hand. FINDINGS: There is swelling around the PIP joint of the index finger. At the base of the middle phalanx, there is a well-corticated rounded bony structure presumably a sesamoid bone or the residua of remote trauma. No fracture seen. XR/XR hand LT 2V IMPRESSION: Soft tissue swelling around PIP joint index finger with probable sesamoid bone. No fracture is seen.
[2022-01-22 20:24] VITALS: BP 141/77; PULSE 58; RESP 16; TEMP 36.6; O2SAT 99; BMI 20.5
--- NOTE | 2022-01-22 20:32 | ED.EXTPRO ---
HPI - Extremity Problem General Chief complaint: Extremity Injury, Upper Stated complaint: left finger laceration Time Seen by Provider: 01/22/22 20:31 Source: patient Mode of arrival: ambulatory Limitations: no limitations History of Present Illness HPI Narrative: 31-year-old male presents to the ER for evaluation of a left index finger injury that occurred 6 days ago. He reports he was at work and he smashed his hand between a concrete block and a tool he was using to break up the concrete. He reports immediate pain to the tip of his left index finger and he shortly thereafter developed blood underneath the fingernail. He also had a cut right at the base of the nail bed, he has been putting bacitracin on it. He reports that the purple discoloration under the fingernail has been progressing, the pain is the same if not a little bit better. He is able to fully bend and extend the finger. He denies any numbness or tingling. He is worried about possible infection or pus under the fingernail. MD Complaint: joint pain Onset (ago): day(s) (6) Pain Consistency: constant Location: left and upper extremity Severity scale (1-10): 4 Quality: aching Radiation: none Relieving factors: immobilization and elevation Exacerbating factors: palpation Associated symptoms: denies other symptoms Related Data Previous Rx's Medication Instructions Recorded valacyclovir 500 mg tablet 500 mg PO Q12H #20 tabs 08/31/20 Allergies Allergy/AdvReac Type Severity Reaction Status Date / Time strawberry [STRAWBERRY] Allergy Unknown TONGUE Verified 01/22/22 20:23 ITCHING AND THROAT Review of Systems Review of Systems: Constitutional: No Fever, No Chills Cardiovascular: No Chest Pain, No SOB Gastrointestinal: No Nausea, No Vomiting, No abdominal Pain Musculoskeletal: + joint pain, No Myalgias Skin: + Skin Lesions, No rash Neuro: No Weakness, No Numbness, No Dizziness, No Headache Psych: + Anxiety/Panic, No Depression Heme/Lymph: + Bruising, No Lymphadenopathy PMFSH Past Medical History Medical History Herpes Surgical History History of nasal surgery Family History Family History (Updated 10/29/21 @ 10:10 by AKIKO Mooney) Father No problems noted. Mother FH: ovarian cancer Alzheimers disease Other Mental health disorder Social History Social History (Updated 10/29/21 @ 10:10 by AKIKO Mooney) Household Members: Spouse and Children Housing: Apartment Do you presently have visiting nurse or other home services: No Alcohol intake: current Alcohol intake frequency: a few times a month Patient Tobacco Use Status: Current someday Tobacco user Tobacco use type: Cigar e-Cigarette/Vaping Use: Never Used Second Hand Smoke Exposure: Yes Substance Use Type: Crack/Cocaine and Marijuana Advance Directives: No Advance Directives Information Provided: No service: No Current occupational status: employed Current occupation: Oil product delivery specialist Sexual orientation: Straight/Heterosexual Cognitive needs: No Hearing needs: No Vision needs: No Physical Exam Vital Signs: Vital Signs: Last Vital Signs Temp 97.8 F 01/22/22 20:24 Pulse 58 01/22/22 20:24 Resp 16 01/22/22 20:24 BP 141/77 H 01/22/22 20:24 Pulse Ox 99 01/22/22 20:24 BMI result Body Mass Index 20.5 Appearance: Alert. Oriented X3. No acute distress. HEENT: normal inspection CVS: Normal heart rate and rhythm. Pulses normal. Respiratory: No respiratory distress. Skin: Skin warm and dry. Normal skin color. Normal skin turgor. No rashes. Extremities: Left index finger with a subungual hematoma, mild tenderness on examination. At the base of the nail bed there is a superficial, well-healing abrasion, bacitracin is on the wound. Normal flexion and extension of the D IP and PIP joints. No sensory deficit. Neuro: Oriented X 3. No motor deficit. No sensory deficit. Course Course Course Narrative: 31-year-old male presents to the ER for evaluation of a left index finger injury that occurred 6 days ago. His examination is consistent with a subungual hematoma and a small abrasion. Given the timeline and the fact that he has not have worsening pain or pressure under the fingernail, will defer nail trephination today. X-rays pending to rule out fracture. Reevaluation(s) Reevaluation #1: X-ray negative for fracture. Patient was counseled on management of subungual hematoma and abrasion. Dressing applied. He is stable for discharge home. Discharge Plan Discharge Clinical Impression: Subungual hematoma of finger Patient Disposition: Home, Self-Care Instructions: Subungual Hematoma (ED) Additional Instructions: Your x-ray today did not show any broken bones. There is a blood collection underneath her fingernail, this will eventually grow out with time. There is no evidence of infection in the tip of the finger. Recommend continuing to apply antibiotic ointment as needed to the small open area. If you develop new or worsening symptoms call 911 or come back to the ER for further evaluation. Prescriptions: No Action valacyclovir 500 mg tablet 500 mg PO Q12H Qty: 20 0RF
== END 2022-01-22 22:06 | disposition home or self-care (01) ==
PROVIDERS: Emergency Provider Emergency Medicine; PCP Internal Medicine
DX: S60.122A Contusion of left index finger with damage to nail, initial encounter (principal); S60.411A Abrasion of left index finger, initial encounter; W23.1XXA Caught, crushed, jammed, or pinched between stationary objects, initial encounter; Y93.89 Activity, other specified; Y92.9 Unspecified place or not applicable; Y99.0 Civilian activity done for income or pay
CPT/HCPCS: 73120; 99282; 99283; 99284

== ENCOUNTER 2022-06-11 12:07 | Outpatient (REF) | payer OTHER, SELFPAY ==
--- NOTE | ~2022-06-11 | XR_ITS ---
EXAMINATION: XR MANDIBLE CLINICAL INFORMATION: Jaw pain COMPARISON: None TECHNIQUE: 4 views of the mandible were obtained. FINDINGS: There are no fractures or dislocations. No bone, joint or soft tissue abnormality is demonstrated. XR/XR mandible <4V IMPRESSION: Unremarkable mandible.
[2022-06-11 12:32] LABS: MANUAL DIFF FLAG NO
[2022-06-11 13:01] LABS: Basophils Absolute Auto 0.1 X10*3/uL (0.0-0.2); Basophils Percent Auto 0.7 % (0-2); Eosinophils Absolute Auto 0.1 X10*3/uL (0.0-0.4); Eosinophils Percent Auto 1.3 % (0-4); Hematocrit 44.9 % (42.0-52.0); Hemoglobin 15.2 g/dl (14.0-18.0); Imm Gran Abs Auto 0.04 X10*3/uL (0.00-0.03); Imm Gran Pct Auto 0.5 % (0.0-0.4); Lymphocytes Absolute Auto 1.9 X10*3/uL (1.2-4.9); Lymphocytes Percent Auto 22.4 % (20-40); Mean Corpuscular HGB Conc 33.9 g/dl (31.0-36.0); Mean Corpuscular Hemoglobin 30.8 pg (27.0-33.0); Mean Corpuscular Volume 91.1 fL (80.0-98.0); Monocytes Absolute Auto 0.6 X10*3/uL (0.1-1.2); Neutrophils Absolute Auto 5.6 x10*3/uL (2.0-8.3); Neutrophils Percent Auto 68.1 % (45-73); Platelet Count 215 X10*3/uL (160-400); Red Blood Count 4.93 X10*6/uL (4.60-5.80); Red Cell Distribution Width 11.7 % (11.0-16.0); White Blood Count 8.3 X10*3/uL (4.8-10.8)
[2022-06-11 13:46] LABS: Alanine Aminotransferase 22 U/L (0-40); Albumin Level 4.7 g/dL (3.5-5.0); Alkaline Phosphatase 62 U/L (39-117); Anion Gap 12 (12-20); Aspartate Amino Transferase 21 U/L (5-37); Bilirubin Total 0.9 mg/dL (0.0-1.0); Blood Urea Nitrogen 10 mg/dL (9-16); Calcium 10.3 mg/dL (8.4-10.2); Carbon Dioxide 28 mmol/L (22-29); Chloride 105 mmol/L (96-108); Cholesterol 141 mg/dL; Estimated Glomerular Filt Rate > 60; Glucose Fasting 97 mg/dL (60-99); HDL Cholesterol 52 mg/dL; LDL Cholesterol Calculated 78 mg/dl; Potassium 4.6 mmol/L (3.3-5.1); Sodium 140 mmol/L (135-145); Total Protein 7.4 g/dL (6.5-8.0); Triglycerides 55 mg/dL
[2022-06-11 14:04] LABS: Thyroid Stimulating Hormone 1.04 uIU/mL (0.32-4.0)
== END 2022-06-11 12:08 | disposition home or self-care (01) ==
LOC: HO.XRAY 12:07
PROVIDERS: PCP Internal Medicine; Visit Provider Internal Medicine
DX: Z00.00 Encounter for general adult medical examination without abnormal findings (principal); Z13.0 Encounter for screening for diseases of the blood and blood-forming organs and certain disorders involving the immune mechanism; R68.84 Jaw pain
CPT/HCPCS: 36415; 70100; 80053; 80061; 84443; 85025

== ENCOUNTER → 2022-10-03 08:47 | Outpatient (BNVA) | payer SELFPAY | PROVIDERS: PCP Internal Medicine; Visit Provider Internal Medicine | DX: Z02.79 Encounter for issue of other medical certificate (principal) ==

== ENCOUNTER 2022-11-05 14:09 | Outpatient (REF) | payer OTHER, SELFPAY ==
--- NOTE | ~2022-11-05 | XR_ITS ---
EXAMINATION: XR SHOULDER, LEFT CLINICAL INFORMATION: Left shoulder pain COMPARISON: None available. TECHNIQUE: AP external rotation, Grashey, scapular Y, and axillary views of the left shoulder. FINDINGS: The bones and soft tissues are normal. No fracture. Glenohumeral and acromioclavicular alignment is anatomic with normal joint space. No abnormal soft tissue calcifications. XR/XR shoulder LT min 2V IMPRESSION: Normal left shoulder.
--- NOTE | ~2022-11-05 | XR_ITS ---
EXAMINATION: XR SHOULDER, RIGHT CLINICAL INFORMATION: Right shoulder pain COMPARISON: None available. TECHNIQUE: AP external rotation, Grashey, scapular Y, and axillary views of the right shoulder. FINDINGS: The bones and soft tissues are normal. No fracture. Glenohumeral and acromioclavicular alignment is anatomic with normal joint space. No abnormal soft tissue calcifications. XR/XR shoulder RT min 2V IMPRESSION: Normal right shoulder.
== END 2022-11-05 14:10 | disposition home or self-care (01) ==
LOC: HO.XRAY 14:09
PROVIDERS: PCP Internal Medicine; Visit Provider Internal Medicine
DX: M25.511 Pain in right shoulder (principal); M25.512 Pain in left shoulder
CPT/HCPCS: 73030

== ENCOUNTER 2022-11-10 09:52 | Outpatient (REF) | payer OTHER, SELFPAY ==
--- NOTE | 2022-11-10 10:54 | ECG_ITS ---
Test Reason : R68.84 - Jaw pain Blood Pressure : / mmHG Vent. Rate : 055 BPM Atrial Rate : 055 BPM P-R Int : 176 ms QRS Dur : 088 ms QT Int : 414 ms P-R-T Axes : 071 071 051 degrees QTc Int : 396 ms Sinus bradycardia with sinus arrhythmia Otherwise normal ECG When compared with ECG of 28-SEP-2013 08:33, No significant change was found Referred By: Edward De Santiago Electronically Signed By:Abraham Pineda
[2022-11-10 11:05] LABS: MANUAL DIFF FLAG NO
[2022-11-10 11:43] LABS: Basophils Absolute Auto 0.1 X10*3/uL (0.0-0.2); Basophils Percent Auto 0.9 % (0-2); Eosinophils Absolute Auto 0.2 X10*3/uL (0.0-0.4); Eosinophils Percent Auto 2.3 % (0-4); Hematocrit 42.9 % (42.0-52.0); Hemoglobin 14.2 g/dl (14.0-18.0); Imm Gran Abs Auto 0.03 X10*3/uL (0.00-0.03); Imm Gran Pct Auto 0.5 % (0.0-0.4); Lymphocytes Absolute Auto 2.1 X10*3/uL (1.2-4.9); Lymphocytes Percent Auto 31.2 % (20-40); Mean Corpuscular HGB Conc 33.1 g/dl (31.0-36.0); Mean Corpuscular Hemoglobin 30.8 pg (27.0-33.0); Mean Corpuscular Volume 93.1 fL (80.0-98.0); Mean Platelet Volume 10.9 fL (9.4-12.4); Monocytes Absolute Auto 0.6 X10*3/uL (0.1-1.2); Monocytes Percent Auto 8.5 % (2-11); Neutrophils Absolute Auto 3.7 x10*3/uL (2.0-8.3); Neutrophils Percent Auto 56.6 % (45-73); Platelet Count 204 X10*3/uL (160-400); Red Blood Count 4.61 X10*6/uL (4.60-5.80); Red Cell Distribution Width 11.5 % (11.0-16.0); White Blood Count 6.6 X10*3/uL (4.8-10.8)
[2022-11-10 11:47] LABS: Appearance Urine Clear; Color Urine Yellow; Glucose Urine UA Negative (Negative); Leukocyte Esterase Urine Negative (Negative); Nitrite Urine Negative (Negative); PH 7.5 (5.0-9.0); Urine Blood Negative (Negative); Urine Ketones Negative (Negative); Urine Protein Negative (Neg-Trace)
[2022-11-10 12:17] LABS: Alanine Aminotransferase 20 U/L (0-40); Albumin Level 4.5 g/dL (3.5-5.0); Alkaline Phosphatase 69 U/L (39-117); Anion Gap 12 (12-20); Aspartate Amino Transferase 18 U/L (5-37); Bilirubin Total 0.7 mg/dL (0.0-1.0); Blood Urea Nitrogen 12 mg/dL (9-16); Calcium 9.7 mg/dL (8.4-10.2); Carbon Dioxide 28 mmol/L (22-29); Chloride 108 mmol/L (96-108); Cholesterol 137 mg/dL; Estimated Glomerular Filt Rate > 60; Glucose Fasting 93 mg/dL (60-99); HDL Cholesterol 47 mg/dL; LDL Cholesterol Calculated 83 mg/dl; Potassium 4.6 mmol/L (3.3-5.1); Sodium 143 mmol/L (135-145); Total Protein 7.1 g/dL (6.5-8.0); Triglycerides 35 mg/dL
== END 2022-11-10 09:53 | disposition home or self-care (01) ==
LOC: HO.LAB 09:52
PROVIDERS: PCP Internal Medicine; Visit Provider Orthopaedic Surgery
DX: M75.21 Bicipital tendinitis, right shoulder (principal); M75.22 Bicipital tendinitis, left shoulder; R68.84 Jaw pain; D64.9 Anemia, unspecified; N28.9 Disorder of kidney and ureter, unspecified; E78.5 Hyperlipidemia, unspecified; N39.0 Urinary tract infection, site not specified
CPT/HCPCS: 36415; 80053; 80061; 81003; 85025; 93005; 99202

== ENCOUNTER 2023-02-04 10:00 | Outpatient (RCR) | payer OTHER, SELFPAY ==
--- NOTE | 2022-12-12 13:01 | MHC.PT.EP ---
[facility] [place] Office [place] Office [place] Office [address] Gwen Oreilly [address] [phone] F: [phone] F: [phone] F: [phone] F: [phone] Physical Therapy Plan of Care Date of Evaluation: Date of Surgery: N/A Diagnosis: bilateral bicipital tendinitis (RL) Assessment: pt is a 32 y/o male presenting to physical therapy w/ referring diagnosis of bicipital tendinitis, bilateral. pt's signs and symptoms seem more consistent w/ poor knowledge of proper/safe exercise, hypermobility, and weakness of shoulder stabilizers. Impairments include pain, decreased range of motion, decreased strength, impaired functional mobility, impaired postural awareness, and altered ambulation mechanics. pt is a good candidate for skilled PT due to age, potential remediation of impairments, typical disease/condition progression and prognosis, comorbidities, and motivation. pt would benefit from skilled PT intervention to provide a tailored strengthening and stretching exercise program, functional training, gait training, postural re-training, neuromuscular re-education, modalities as needed for pain, equipment safety demonstration. Frequency and Duration: The patient will be seen 2x/wk for 4 wks Short Term Goals: pt will be I w/ HEP to promote self-management of condition. pt will improve B shoulder ER strength to 5/5 to increase stability w/ upper body ADLs. Burrer Marker Axle Goals: pt will report a statistically significant improvement in self-reported outcome measure, SPADI, to promote return to PLOF. pt will demo proper lifting mechanics from floor to chest, waist to overhead x5 reps w/ no verbal cueing to promote safe lifting. Treatment Plan: Modalities to reduce pain, spasms and effusion. Manual therapy to restore motion and function. Therapeutic exercise to improve strength and flexibility. Neuromuscular re-education for posture and balance. Therapeutic activities to return to functional activities of daily living. Electronically signed by: Mila Cabello PT, DPT Please sign and return to therapist. Thank you for your referral.
--- NOTE | 2023-02-10 08:32 | MHC.PT.DC ---
[facility] Nursery Office [place] Office [place] Office [address] Gwen Oreilly 140 [facility] [phone] F: [phone] F: [phone] F: [phone] F: [phone] Physical Therapy Discharge Report Diagnosis: bilateral bicipital tendinitis (RL) Date of Surgery: N/A Date of Evaluation: 12/12/22 Date of Discharge: 02/10/23 Treatments to Date: 12 Cancellations to Date: 0 No Shows to Date: 0 Discharge Status: Improved Function Independent with HEP Discharge Summary: The patient was still complaining of some shoulder pain and muscle soreness but overall noticing improvements. He is independent with an extensive home exercise program. He is now discharged from this physical therapy plan of care. Electronically signed by: Mila Cabello PT, DPT Please sign and return to therapist. Thank you for your referral.
== END 2023-02-10 08:33 | disposition home or self-care (01) ==
LOC: HO.PT 10:00
PROVIDERS: PCP Internal Medicine; Visit Provider Orthopaedic Surgery
DX: M75.21 Bicipital tendinitis, right shoulder (principal); M75.22 Bicipital tendinitis, left shoulder
CPT/HCPCS: 97110; 97161; 97530

== ENCOUNTER 2023-06-26 12:44 | Emergency (ER) | payer OTHER, SELFPAY ==
--- NOTE | ~2023-06-26 | US_ITS ---
EXAMINATION: US SCROTUM CLINICAL INFORMATION: Right flank pain radiating to right scrotum. COMPARISON: None available. TECHNIQUE: A sonogram of the scrotum was performed assessing parker-scale appearance and color Doppler flow. Spectral Doppler analysis of the arterial and venous flow were performed in the testes bilaterally. FINDINGS: RIGHT: Right testicle measures 4.4 x 2.0 x 3.1 cm, volume 14.2 mL. No focal testicular parenchymal lesions are visualized. Spectral Doppler analysis of the arterial and venous flow is normal in the right testis. Right epididymal head is normal in size. There is a small right epidural head cysts measuring 1.8 x 1.2 x 2.3 cm No right hydrocele or varicocele is seen. Right epididymal Doppler flow is normal. LEFT: Left testicle measures 4.0 2.1 x 3.1 cm, volume 13.6 mL. No focal testicular parenchymal lesions are visualized. Spectral Doppler analysis of the arterial and venous flow is normal in the left testis. Left epididymal head is normal in size. No left hydrocele or varicocele is seen. Left epididymal Doppler flow is normal. US/US scrotum IMPRESSION: Right epididymal head 2.3 cm cyst. Otherwise ultrasound scrotum is unremarkable.
--- NOTE | ~2023-06-26 | CT_ITS ---
EXAMINATION: CT ABDOMEN AND PELVIS WITHOUT CONTRAST CLINICAL INFORMATION: Right flank pain radiating to right scrotum. COMPARISON: 01/12/2017 TECHNIQUE: Multidetector volumetric imaging was performed from the superior aspect of the liver through the pubic symphysis. Sagittal and coronal reformatted images were obtained on the technologist's workstation. This CT examination was performed using dose optimization techniques as appropriate, variously including the following: *Automated exposure control *Adjustment of mA and/or kV according to patient size (this includes techniques or standardized protocols for targeted exams where dose is matched to indication/reason for exam; i.e. extremities or head) *Use of iterative reconstruction technique DLP: 469 mGy-cm FINDINGS: LUNG BASES: The visualized lung bases are unremarkable. LIVER, GALLBLADDER, AND BILIARY TREE: The noncontrast liver is normal in size and contour. No biliary ductal dilatation is present. The gallbladder is not well visualized. PANCREAS: Unremarkable. SPLEEN: Unremarkable. ADRENAL GLANDS: Unremarkable. KIDNEYS AND URETERS: The kidneys are symmetric in size. There are bilateral 2 to 3 mm nonobstructing renal calculi. Ureteral calculus is seen. No hydronephrosis or perinephric stranding. BLADDER: No bladder calculus. GASTROINTESTINAL TRACT: The small and large bowel are unremarkable. The appendix is unremarkable. ABDOMINAL WALL: No significant hernia is appreciated. LYMPH NODES: No bulky lymphadenopathy. VASCULAR: Normal caliber abdominal aorta. PELVIC VISCERA: Unremarkable. OSSEOUS STRUCTURES: No destructive bone lesions. CT/CT abdomen pelvis wo IV con IMPRESSION: Bilateral nonobstructing renal calculi. No hydronephrosis.
--- NOTE | ~2023-06-26 | US_ITS ---
EXAMINATION: US SCROTUM CLINICAL INFORMATION: Right flank pain radiating to right scrotum. COMPARISON: None available. TECHNIQUE: A sonogram of the scrotum was performed assessing parker-scale appearance and color Doppler flow. Spectral Doppler analysis of the arterial and venous flow were performed in the testes bilaterally. FINDINGS: RIGHT: Right testicle measures 4.4 x 2.0 x 3.1 cm, volume 14.2 mL. No focal testicular parenchymal lesions are visualized. Spectral Doppler analysis of the arterial and venous flow is normal in the right testis. Right epididymal head is normal in size. There is a small right epidural head cysts measuring 1.8 x 1.2 x 2.3 cm No right hydrocele or varicocele is seen. Right epididymal Doppler flow is normal. LEFT: Left testicle measures 4.0 2.1 x 3.1 cm, volume 13.6 mL. No focal testicular parenchymal lesions are visualized. Spectral Doppler analysis of the arterial and venous flow is normal in the left testis. Left epididymal head is normal in size. No left hydrocele or varicocele is seen. Left epididymal Doppler flow is normal. US/US scrotum doppler IMPRESSION: Right epididymal head 2.3 cm cyst. Otherwise ultrasound scrotum is unremarkable.
[2023-06-26 13:03] VITALS: BP 120/65; PULSE 61; O2SAT 100
[2023-06-26 13:30] VITALS: BP 107/59; PULSE 63; RESP 16; TEMP 37; O2SAT 98; BMI 20.2
--- NOTE | 2023-06-26 13:33 | ED.MALEGU ---
HPI - Male Genitourinary General Chief complaint: Urogenital-Male Stated complaint: abd pain,testicular pain Time Seen by Provider: 06/26/23 18:33 Related Data Allergies Allergy/AdvReac Type Severity Reaction Status Date / Time Pesticides AdvReac Tongue Uncoded 11/30/23 11:05 Itching PMFSH Past Medical History Onset Date is defined in the Problem List Problems that require an onset date and time if occurred within 24 hrs of arrival to the ED Aortic Dissection and Rupture; Neurologic impairment; Cardiopulmonary Arrest; Endotracheal Intubation; Insertion or Replacement of Mechanical Circulatory Assist Device Medical History Herpes Surgical History History of nasal surgery Family History Family History Father No problems noted. Mother FH: ovarian cancer Alzheimers disease Other Mental health disorder Social History Social History Household Members: Spouse and Children Housing: Apartment Do you presently have visiting nurse or other home services: No Alcohol intake: current Alcohol intake frequency: a few times a month Patient Tobacco Use Status: Former Tobacco user Tobacco use type: Cigar e-Cigarette/Vaping Use: Never Used Second Hand Smoke Exposure: Yes Substance Use Type: Crack/Cocaine and Marijuana service: No Current occupational status: employed Current occupation: School Bus Sexual orientation: Straight/Heterosexual Cognitive needs: No Hearing needs: No Vision needs: No Physical Exam Vital Signs: Vital Signs: Last Vital Signs Temp 98.6 F 06/26/23 13:30 Pulse 63 06/26/23 13:30 Resp 16 06/26/23 13:30 BP 107/59 L 06/26/23 13:30 Pulse Ox 98 06/26/23 13:30 O2 Del Method Room Air 06/26/23 13:30 BMI result Body Mass Index 20.2 Course Course Course Narrative: MIGUEL ÁNGEL-13:35PM - 33yoM presenting to the ER with complaints of right flank pain that is radiating to his right scrotum area that started a few hours prior to arrival while he was at the gym performing punching bags exercise. He was not heavy lifting. He reports he has never had this before. He reports some burning upon urination which started after his right flank/testicular pain. Reports he is not sexually active at this time it does not believe he has any STIs. Although willing to be tested for STIs. He reports he did have some nausea and vomiting. He was given some medication by EMS which reported some symptomatic relief. IV removed while in triage to left by RN. Patient denies fevers, hematuria, diarrhea constipation or any other symptoms complaints or concerns at this time. Plan: Labs, UA, gonorrhea chlamydia urine, CT scan abdomen pelvis without IV contrast to evaluate for possible kidney stones, ultrasound of scrotum and patient sent back to the waiting room to be evaluated in the ED. Discharge Plan Discharge Clinical Impression: Acute flank pain Patient Disposition: Left W/O Completing Treatment Discharge Date/Time: 06/26/23 20:13
== END 2023-06-26 20:13 | disposition left against medical advice (07) ==
PROVIDERS: Emergency Provider Emergency Medicine; PCP Internal Medicine
DX: N50.3 Cyst of epididymis (principal); N50.811 Right testicular pain; N50.82 Scrotal pain
CPT/HCPCS: 74176; 76870; 93975; 99281; 99284

== ENCOUNTER 2023-07-01 12:59 | Outpatient (AMB) | payer OTHER, SELFPAY ==
[2023-07-01 13:03] VITALS: BP 102/62; PULSE 78; TEMP 36.7; O2SAT 98; BMI 20.2
--- NOTE | 2023-07-01 13:03 | MHC.OFFWIV ---
Intake Vital Signs 07/01/23 13:03 Height 5 ft 3 in Weight 114 lb BMI 20.2 BP 102/62 Blood Pressure Location Lt brachial Position Sitting Pulse 78 Pulse Source Pulse Oximeter Temp 98.0 F Temp Source Oral Pulse Oximetry (%) 98 Intake Visit Reasons: EP Sore throat, Body/Headache (masked) Intake Note: pt is here for c/o body ache, headache, sore throat, and sinus pressure. pt states he might have covid Patient Tobacco Use Status: Current someday Tobacco user Allergies Pesticides Adverse Reaction (Uncoded 07/01/23 13:16) Tongue Itching Do you need a note to return to daycare/school/sports/work: Yes HPI HPI Comments History of Present Illness Details Here today w/ flu like sx started on Thursday w/ chills & sweats would like to be tested for COVID as he worries about that Does not want any medication for treatment, prefers natural methods using tea to help PFSH Medical History Herpes Surgical History History of nasal surgery Family History Father No problems noted. Mother FH: ovarian cancer Alzheimers disease Other Mental health disorder Social History (Updated 11/10/22 @ 10:09 by Savana Caballero CMA) Household Members: Spouse and Children Housing: Apartment Do you presently have visiting nurse or other home services: No Alcohol intake: current Alcohol intake frequency: a few times a month Patient Tobacco Use Status: Current someday Tobacco user Tobacco use type: Cigar e-Cigarette/Vaping Use: Never Used Second Hand Smoke Exposure: Yes Substance Use Type: Crack/Cocaine and Marijuana service: No Current occupational status: employed Current occupation: School [employer] Sexual orientation: Straight/Heterosexual Cognitive needs: No Hearing needs: No Vision needs: No Review of Systems Const All systems reviewed & are unremarkable except as noted in HPI and below Physical Exam Vital Signs: Last Vital Signs Temp 98.0 F 07/01/23 13:03 Pulse 78 07/01/23 13:03 BP 102/62 07/01/23 13:03 Pulse Ox 98 07/01/23 13:03 BMI result Body Mass Index 20.2 Const Other: Tm intact, mild effusion on R pharynx WNL LS CTAB RRR Assessment & Plan Assessment & Plan (1) Flu-like symptoms: Code(s): R68.89 - Other general symptoms and signs Plan: . Plan swabbed today, will be called only if + result advised to use Emergen-C or the like to help Orders: Orders SARS-CoV2/FLU/RSV Today R68.89 - Other general symptoms and signs Coding Level of Care Code Est Pt Level 3 (12214) Diagnoses Flu-like symptoms R68.89
== END 2023-07-01 13:49 | disposition home or self-care (01) ==
PROVIDERS: PCP Internal Medicine; Visit Provider Nurse Practitioner Family
DX: R68.89 Other general symptoms and signs (principal)
CPT/HCPCS: 99213

== ENCOUNTER 2023-07-01 16:26 | Outpatient (REF) | payer OTHER, SELFPAY ==
[2023-07-01 17:27] LABS: Influenza A PCR NEGATIVE (Negative); Influenza B PCR NEGATIVE (Negative); Resp Syncy Virus RNA Qual PCR NEGATIVE (Negative); SARS COV2 PCR INHOUSE POSITIVE (Negative)
== END 2023-07-01 16:27 | disposition home or self-care (01) ==
LOC: HO.HMGCLNP 16:26
PROVIDERS: Visit Provider Nurse Practitioner Family
DX: Z11.52 Encounter for screening for COVID-19 (principal); R68.89 Other general symptoms and signs
CPT/HCPCS: 0241U

== ENCOUNTER 2023-11-30 09:38 | Outpatient (AMB) | payer OTHER, SELFPAY ==
--- NOTE | 2023-11-30 11:03 | AM.OFFWIN_ITS ---
Intake Vital Signs 3 11/30/23 11:06 Weight 114 lb BP 110/80 Blood Pressure Location Lt brachial Position Sitting Pulse 54 Pulse Source Pulse Oximeter Pulse Oximetry (%) 98 Oxygen Delivery Method Room Air Intake Visit Reasons: EP cut on rt wrist 10 days not healed yet Intake Note: Patient here for cut on right wrist that has been present for about 10 days that is not healing. 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 [facility] Medical History Herpes Surgical History History of nasal surgery Family History Father No problems noted. Mother FH: ovarian cancer Alzheimers disease Other Mental health disorder Social History Household Members: Spouse and Children Housing: Apartment Do you presently have visiting nurse or other home services: No Alcohol intake: current Alcohol intake frequency: a few times a month Patient Tobacco Use Status: Former Tobacco user Tobacco use type: Cigar e-Cigarette/Vaping Use: Never Used Second Hand Smoke Exposure: Yes Substance Use Type: Crack/Cocaine and Marijuana service: No Current occupational status: employed Current occupation: School [employer] Sexual orientation: Straight/Heterosexual Cognitive needs: No Hearing needs: No Vision needs: No Review of Systems Const All systems reviewed & are unremarkable except as noted in HPI and below Physical Exam Vital Signs: Last Vital Signs Pulse 54 11/30/23 11:06 BP 110/80 11/30/23 11:06 Pulse Ox 98 11/30/23 11:06 Oxygen Delivery Method Room Air 11/30/23 11:06 Const General: no acute distress Orientation/consciousness: patient oriented x3 Eyes General: appearance normal, both eyes and all related structures Resp Effort & Inspection: normal respiratory effort and able to speak in complete sentences Neuro General: patient oriented x3 Extrem Elbow/forearm/wrist images: 2 1. 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 Medications: New 2 amoxicillin-pot clavulanate 500-125 mg (Augmentin) 1 tab PO Q12H 14 tabs 0RF Coding Level of Care Code Est Pt Level 4 (19955) Diagnoses Wound infection T14.8XXA; L08.9
[2023-11-30 11:06] VITALS: BP 110/80; PULSE 54; O2SAT 98
== END 2023-11-30 11:24 | disposition home or self-care (01) ==
PROVIDERS: PCP Internal Medicine; Visit Provider Internal Medicine
DX: T14.8XXA Other injury of unspecified body region, initial encounter (principal); L08.9 Local infection of the skin and subcutaneous tissue, unspecified
CPT/HCPCS: 99214

== ENCOUNTER 2023-12-03 11:41 | Outpatient (REF) | payer OTHER, SELFPAY ==
[2023-12-03 12:03] LABS: MANUAL DIFF FLAG NO
[2023-12-03 12:47] LABS: Basophils Absolute Auto 0.1 X10*3/uL (0.0-0.2); Basophils Percent Auto 0.9 % (0-2); Eosinophils Absolute Auto 0.2 X10*3/uL (0.0-0.4); Hematocrit 43.9 % (42.0-52.0); Hemoglobin 14.6 g/dl (14.0-18.0); Imm Gran Abs Auto 0.04 X10*3/uL (0.00-0.03); Imm Gran Pct Auto 0.5 % (0.0-0.4); Lymphocytes Absolute Auto 2.2 X10*3/uL (1.2-4.9); Lymphocytes Percent Auto 29.7 % (20-40); Mean Corpuscular HGB Conc 33.3 g/dl (31.0-36.0); Mean Corpuscular Hemoglobin 30.2 pg (27.0-33.0); Mean Corpuscular Volume 90.9 fL (80.0-98.0); Mean Platelet Volume 10.5 fL (9.4-12.4); Monocytes Absolute Auto 0.6 X10*3/uL (0.1-1.2); Monocytes Percent Auto 8.4 % (2-11); Neutrophils Absolute Auto 4.4 x10*3/uL (2.0-8.3); Neutrophils Percent Auto 58.5 % (45-73); Platelet Count 241 X10*3/uL (160-400); Red Blood Count 4.83 X10*6/uL (4.60-5.80); Red Cell Distribution Width 11.7 % (11.0-16.0); White Blood Count 7.5 X10*3/uL (4.8-10.8)
[2023-12-03 13:30] LABS: Alanine Aminotransferase 21 U/L (0-40); Albumin Level 4.5 g/dL (3.5-5.0); Alkaline Phosphatase 55 U/L (39-117); Anion Gap 10 (12-20); Aspartate Amino Transferase 23 U/L (5-37); Bilirubin Total 0.8 mg/dL (0.0-1.0); Blood Urea Nitrogen 17 mg/dL (9-16); Calcium 10.1 mg/dL (8.4-10.2); Carbon Dioxide 27 mmol/L (22-29); Chloride 106 mmol/L (96-108); Cholesterol 174 mg/dL (<200); Estimated Glomerular Filt Rate > 60; Glucose Fasting 89 mg/dL (60-99); HDL Cholesterol 67 mg/dL (>40); LDL Cholesterol Calculated 101 mg/dL (<100); Potassium 4.9 mmol/L (3.3-5.1); Sodium 138 mmol/L (135-145); Total Protein 7.3 g/dL (6.5-8.0); Triglycerides 34 mg/dL (<150)
== END 2023-12-03 11:42 | disposition home or self-care (01) ==
LOC: HO.LAB 11:41
PROVIDERS: PCP Internal Medicine; Visit Provider Internal Medicine
DX: Z13.0 Encounter for screening for diseases of the blood and blood-forming organs and certain disorders involving the immune mechanism (principal); Z13.220 Encounter for screening for lipoid disorders
CPT/HCPCS: 36415; 80053; 80061; 85025

== ENCOUNTER 2023-12-15 09:48 | Outpatient (AMB) | payer OTHER, SELFPAY ==
[2023-12-15 09:58] VITALS: BP 110/60; PULSE 60; O2SAT 98; BMI 20.2
--- NOTE | 2023-12-15 09:58 | A.OFFPC_ITS ---
Vital Signs 12/15/23 09:58 Height 5 ft 3 in Weight 114 lb BMI 20.2 BP 110/60 Blood Pressure Location Lt brachial Position Sitting Pulse 60 Pulse Source Pulse Oximeter Pulse Oximetry (%) 98 Oxygen Delivery Method Room Air Intake Visit Reasons: possible hernia Allergies Pesticides Adverse Reaction (Uncoded 11/30/23 11:05) Tongue Itching Tobacco use date assessed: 12/15/23 Dental Screening Dental Screen Date: 12/15/23 Did you have a dental visit in the last 12 months?: No Did you have a dental problem in the last 6 months where you did not have access to dental care?: No Was dental information given to patient?: Patient has dentist HPI possible hernia HPI Details tender over lower abdomen; no change in bms [facility] Medical History Herpes Surgical History History of nasal surgery Family History Father No problems noted. Mother FH: ovarian cancer Alzheimers disease Other Mental health disorder Social History Household Members: Spouse and Children Housing: Apartment Do you presently have visiting nurse or other home services: No Alcohol intake: current Alcohol intake frequency: a few times a month Patient Tobacco Use Status: Former Tobacco user Tobacco use type: Cigar e-Cigarette/Vaping Use: Never Used Second Hand Smoke Exposure: Yes Substance Use Type: Crack/Cocaine and Marijuana service: No Current occupational status: employed Current occupation: School Bus Sexual orientation: Straight/Heterosexual Cognitive needs: No Hearing needs: No Vision needs: No Questionnaire PHQ-9 Over the last 2 weeks, how often have you been bothered by any of the following problems? 1. Little interest or pleasure in doing things: not at all 2. Feeling down, depressed, or hopeless: not at all 3. Trouble falling or staying asleep, or sleeping too much: not at all 4. Feeling tired or having little energy: not at all 5. Poor appetite or overeating: not at all 6. Feeling bad about yourself - or that you are a failure or have let yourself or your family down: not at all 7. Trouble concentrating on things, such as reading the newspaper or watching television: not at all 8. Moving or speaking so slowly that other people could have noticed. Or the opposite - being so fidgety or restless that you have been moving around a lot more than usual: not at all 9. Thoughts that you would be better off or of hurting yourself in some way: not at all Total score: 0 Depression Screening Interpretation: Negative Depression Screening Done: Yes Source: Developed by Drs. Fredy Franklin, Alexsandra Taveras, Mateo Rosario and colleagues, with an educational kristyn from [employer]. Thrive Questionnaire Date Thrive assessed: 12/15/23 I am a: Patient What is your living situation today?: I have a steady place to live Within the past 12 months, did the food you bought not last and you didn't have the money to get more?: Never true Within the past 12 months, did you worry whether your food would run out before you got money to buy more?: Never true Do you have trouble paying for medicines?: No Do you have trouble getting transportation to medical appointments?: No Do you have trouble paying your heating and electricity bill?: No Do you have trouble taking care of your child, family member or friend?: No Do you have trouble with day-to-day activities such as bathing, preparing meals, shopping, managing finances, etc.?: No Are you currently unemployed and looking for a job?: No Are you interested in more education?: No Please select the resources that you would like help with: None THRIVE Score: 0 AUDIT C Alcohol Use Questionnaire (AUDIT-C) 1. How often do you have a drink containing alcohol?: Monthly or less 2. How many drinks containing alcohol do you have on a typical day when you are drinking?: 1 or 2 3. How often do you have six or more drinks on one occasion?: Never Total Score: 1 Score Reviewed/Action Taken: Yes ABEBE-7 AMB Questionnaire ABEBE-7 Date ABEBE - 7 assessed: 12/15/23 Feeling nervous, anxious, or on edge: 0 = Not at all Not being able to stop or control worryin = Not at all Worrying too much about different things: 0 = Not at all Trouble relaxin = Not at all Being so restless that it is hard to sit still: 0 = Not at all Becoming easily annoyed or irritable: 0 = Not at all Feeling afraid as if something awful might happen: 0 = Not at all Total ABEBE-7 score (0-4 normal; 5-9 mild; 10-14 moderate; 15-21 severe): 0 Source: Developed by Drs. Fredy Franklin, Alexsandra Taveras, Mateo Rosario and colleagues, with an educational kristyn from [employer]. Review of Systems Const Denies chills, Denies headache(s) and Denies weight loss ENT Denies headache(s) Card Denies chest pain, Denies syncope, Denies irregular heart rhythm and Denies dyspnea Resp Denies chest congestion, Denies cough and Denies dyspnea GI Reports abdominal pain, Denies change in stool character, Denies nausea and Denies vomiting Musc Denies deformity and Denies joint swelling Neuro Denies syncope and Denies headache(s) Physical exam (Primary Care) Vital Signs: Last Vital Signs Pulse 60 12/15/23 09:58 BP 110/60 12/15/23 09:58 Pulse Ox 98 12/15/23 09:58 Oxygen Delivery Method Room Air 12/15/23 09:58 BMI result Body Mass Index 20.2 Tobacco/Smoking Status: Tobacco use Status Tobacco use date assessed 12/15/23 12/15/23 10:04 Patient Tobacco Use Status Former Tobacco user 12/15/23 09:59 Tobacco use type Cigar 12/15/23 09:59 e-Cigarette/Vaping Use Never Used 12/15/23 09:59 PHQ-9: PHQ-9 Score PHQ-9: Total score 0 12/15/23 10:50 Depression Screening Interpretation: Negative Thrive Assessment: Date of Thrive Assessment Date Thrive assessed 12/15/23 12/15/23 09:59 Const General: cooperative, comfortable, no acute distress and alert Neck Neck: Yes no lymphadenopathy Thyroid: Thyroid normal Resp Effort & Inspection: normal respiratory effort Auscultation: clear to auscultation bilaterally Percussion: percussion normal Cardio Jugular venous distension: no JVD Palpation: normal PMI Rate: regular rate Rhythm: regular rhythm Heart sounds: S1 normal heart sound present and S2 normal heart sound present GI Inspection: Yes normal to inspection Palpation (GI): No hepatosplenomegaly present Skin General skin exam: no rashes or lesions noted Extrem General: Yes no clubbing, cyanosis or edema Assessment and Plan Assessment & Plan (1) Abdominal pain: Code(s): R10.9 - Unspecified abdominal pain Plan: abd wall pain; reassured Coding Level of Care Code Est Pt Level 3 (85629) Diagnoses Abdominal pain R10.9 Additional Codes PHQ-9 - 15078 - PHQ-9 Billing: ([id number])
== END 2023-12-15 10:19 | disposition home or self-care (01) ==
PROVIDERS: PCP Internal Medicine; Visit Provider Internal Medicine
DX: R10.9 Unspecified abdominal pain (principal)
CPT/HCPCS: 99213

== ENCOUNTER 2024-05-16 13:43 | Outpatient (AMB) | payer OTHER, SELFPAY ==
[2024-05-16 13:44] VITALS: BP 106/74; PULSE 65; O2SAT 98; BMI 21.8
--- NOTE | 2024-05-16 13:44 | A.OFFPC_ITS ---
Vital Signs 05/16/24 13:44 Height 5 ft 3 in Weight 123 lb 2 oz BMI 21.8 BP 106/74 Blood Pressure Location Lt brachial Position Sitting Pulse 65 Pulse Source Pulse Oximeter Pulse Oximetry (%) 98 Oxygen Delivery Method Room Air Intake Visit Reasons: Annual exam Hosiery Mender Required: No Accompanied by: Self / Same As Patient Allergies Pesticides Adverse Reaction (Uncoded 05/16/24 13:45) Tongue Itching Tobacco use date assessed: 05/16/24 Dental Screening Dental Screen Date: 05/16/24 Did you have a dental visit in the last 12 months?: No Did you have a dental problem in the last 6 months where you did not have access to dental care?: No Was dental information given to patient?: Patient has dentist HPI Annual exam HPI Details healthy [facility] Medical History Herpes Surgical History History of nasal surgery Family History Father No problems noted. Mother FH: ovarian cancer Alzheimers disease Other Mental health disorder Social History Household Members: Spouse and Children Housing: Apartment Do you presently have visiting nurse or other home services: No Alcohol intake: current Alcohol intake frequency: a few times a month Patient Tobacco Use Status: Former Tobacco user Tobacco use type: Cigar e-Cigarette/Vaping Use: Never Used Second Hand Smoke Exposure: Yes Substance Use Type: Crack/Cocaine and Marijuana service: No Current occupational status: employed Current occupation: [employer] Sexual orientation: Straight/Heterosexual Cognitive needs: No Hearing needs: No Vision needs: No Questionnaire PHQ-9 Over the last 2 weeks, how often have you been bothered by any of the following problems? 1. Little interest or pleasure in doing things: not at all 2. Feeling down, depressed, or hopeless: not at all 3. Trouble falling or staying asleep, or sleeping too much: not at all 4. Feeling tired or having little energy: not at all 5. Poor appetite or overeating: several days 6. Feeling bad about yourself - or that you are a failure or have let yourself or your family down: several days 7. Trouble concentrating on things, such as reading the newspaper or watching television: not at all 8. Moving or speaking so slowly that other people could have noticed. Or the opposite - being so fidgety or restless that you have been moving around a lot more than usual: not at all 9. Thoughts that you would be better off or of hurting yourself in some way: not at all Total score: 2 Source: Developed by Drs. Fredy Franklin, Alexsandra Taveras, Mateo Rosario and colleagues, with an educational kristyn from [employer]. Thrive Questionnaire Date Thrive assessed: 05/16/24 I am a: Patient What is your living situation today?: I choose not to answer this question Within the past 12 months, did the food you bought not last and you didn't have the money to get more?: I choose not to answer this question Within the past 12 months, did you worry whether your food would run out before you got money to buy more?: I choose not to answer this question Do you have trouble paying for medicines?: No Do you have trouble getting transportation to medical appointments?: No Do you have trouble paying your heating and electricity bill?: No Do you have trouble taking care of your child, family member or friend?: No Do you have trouble with day-to-day activities such as bathing, preparing meals, shopping, managing finances, etc.?: No Are you currently unemployed and looking for a job?: No Are you interested in more education?: No Please select the resources that you would like help with: None Currently or been in a relationship where the following occur: I choose not to answer THRIVE Score: 0 AUDIT C Alcohol Use Questionnaire (AUDIT-C) 1. How often do you have a drink containing alcohol?: Monthly or less 2. How many drinks containing alcohol do you have on a typical day when you are drinking?: 1 or 2 3. How often do you have six or more drinks on one occasion?: Never Total Score: 1 ABEBE-7 AMB Questionnaire ABEBE-7 Date ABEBE - 7 assessed: 05/16/24 Feeling nervous, anxious, or on edge: 0 = Not at all Not being able to stop or control worryin = Not at all Worrying too much about different things: 0 = Not at all Trouble relaxin = Not at all Being so restless that it is hard to sit still: 0 = Not at all Becoming easily annoyed or irritable: 1 = Several days Feeling afraid as if something awful might happen: 0 = Not at all Total ABEBE-7 score (0-4 normal; 5-9 mild; 10-14 moderate; 15-21 severe): 1 Source: Developed by Drs. Fredy Franklin, Alexsandra Taveras, Mateo Rosario and colleagues, with an educational kristyn from [employer]. Review of Systems Const Denies chills, Denies fatigue, Denies headache(s) and Denies weight loss Eyes Denies change in vision, Denies diplopia and Denies eye pain ENT Denies vertigo, Denies dizziness, Denies headache(s) and Denies nasal discharge Card Denies chest pain, Denies rapid heart rate and Denies dyspnea on exertion Resp Denies chest congestion, Denies cough, Denies pain with cough and Denies dyspnea on exertion GI Denies abdominal pain, Denies hematochezia and Denies change in bowel habits Musc Denies myalgias, Denies arthralgias and Denies joint swelling Skin/Breast Denies lesions and Denies unusual bruising Neuro Denies vertigo, Denies dizziness, Denies headache(s) and Denies focal weakness Endo Denies fatigue Physical exam (Primary Care) Vital Signs: Last Vital Signs Pulse 65 05/16/24 13:44 BP 106/74 05/16/24 13:44 Pulse Ox 98 05/16/24 13:44 Oxygen Delivery Method Room Air 05/16/24 13:44 BMI result Body Mass Index 21.8 Tobacco/Smoking Status: Tobacco use Status Tobacco use date assessed 05/16/24 05/16/24 13:50 Patient Tobacco Use Status Former Tobacco user 05/16/24 13:50 Tobacco use type Cigar 05/16/24 13:50 e-Cigarette/Vaping Use Never Used 05/16/24 13:50 PHQ-9: PHQ-9 Score PHQ-9: Total score 2 05/16/24 13:50 Thrive Assessment: Date of Thrive Assessment Date Thrive assessed 05/16/24 05/16/24 13:50 Currently or been in a relationship where the following occur: I choose not to answer Const General: cooperative, healthy appearing and no acute distress Orientation/consciousness: oriented to person, oriented to place and oriented to time HENMT Head: Yes normal to inspection, Yes normocephalic and Yes atraumatic Mouth: Normal oral and palatal mucosa present and tongue normal Throat: Yes posterior oropharynx normal and Yes uvula midline Eyes General: appearance normal, both eyes and all related structures Neck Neck: Yes normal visual inspection, Yes full ROM and Yes no lymphadenopathy Thyroid: Thyroid normal Carotids: normal carotid upstroke Chest Chest palpation & inspection: normal inspection of the chest Resp Effort & Inspection: normal respiratory effort and able to speak in complete sentences Auscultation: clear to auscultation bilaterally Cardio Jugular venous distension: no JVD Palpation: normal PMI Rate: regular rate Rhythm: regular rhythm Heart sounds: S1 normal heart sound present and S2 normal heart sound present GI Inspection: Yes normal to inspection Palpation (GI): Soft to palpation and No hepatosplenomegaly present Auscultation: normal bowel sounds General: Yes no CVA tenderness Back/Spine/Pelvis Back: no CVA tenderness Skin General skin exam: no rashes or lesions noted Neuro General: oriented to person, oriented to place and oriented to time Extrem General: Yes normal to inspection and Yes full ROM Coding Level of Care Code Est Pt Prev Care [id number]([id number]) Diagnoses Physical exam Z00.00 Assessment & Plan Assessment & Plan (1) Physical exam: Code(s): Z00.00 - Encounter for general adult medical examination without abnormal findings Category: Medical Plan: stable; do labs Orders: Orders Thyroid Stimulating Hormone Today Z13.29 - Encounter for screening for other suspected endocrine disorder Complete Blood Count Auto Diff Today Z13.0 - Encounter for screening for diseases of the blood and blood-forming organs and certain disorders involving the immune mechanism Lipid Panel Today Z13.220 - Encounter for screening for lipoid disorders Comprehensive [place]. Panel Fast Today Z13.9 - Encounter for screening, unspecified
== END 2024-05-16 13:59 | disposition home or self-care (01) ==
PROVIDERS: PCP Internal Medicine; Visit Provider Internal Medicine
DX: Z00.00 Encounter for general adult medical examination without abnormal findings (principal)

== ENCOUNTER 2024-05-16 13:43 | Outpatient (REF) | payer OTHER, SELFPAY ==
[2024-05-16 14:18] LABS: MANUAL DIFF FLAG NO
[2024-05-16 14:31] LABS: Basophils Absolute Auto 0.1 X10*3/uL (0.0-0.2); Basophils Percent Auto 0.6 % (0-2); Eosinophils Absolute Auto 0.1 X10*3/uL (0.0-0.4); Eosinophils Percent Auto 1.5 % (0-4); Hematocrit 43.5 % (42.0-52.0); Hemoglobin 15.2 g/dl (14.0-18.0); Imm Gran Abs Auto 0.02 X10*3/uL (0.00-0.03); Imm Gran Pct Auto 0.3 % (0.0-0.4); Lymphocytes Absolute Auto 2.3 X10*3/uL (1.2-4.9); Lymphocytes Percent Auto 28.8 % (20-40); Mean Corpuscular HGB Conc 34.9 g/dl (31.0-36.0); Mean Corpuscular Hemoglobin 30.7 pg (27.0-33.0); Mean Corpuscular Volume 87.9 fL (80.0-98.0); Mean Platelet Volume 10.4 fL (9.4-12.4); Monocytes Absolute Auto 0.5 X10*3/uL (0.1-1.2); Monocytes Percent Auto 6.7 % (2-11); Neutrophils Absolute Auto 4.9 x10*3/uL (2.0-8.3); Neutrophils Percent Auto 62.1 % (45-73); Platelet Count 244 X10*3/uL (160-400); Red Blood Count 4.95 X10*6/uL (4.60-5.80); Red Cell Distribution Width 11.5 % (11.0-16.0); White Blood Count 7.9 X10*3/uL (4.8-10.8)
[2024-05-16 15:17] LABS: Alanine Aminotransferase 25 U/L (0-40); Albumin Level 4.8 g/dL (3.5-5.0); Alkaline Phosphatase 61 U/L (39-117); Anion Gap 10 (12-20); Aspartate Amino Transferase 26 U/L (5-37); Bilirubin Total 1.2 mg/dL (0.0-1.0); Blood Urea Nitrogen 13 mg/dL (9-16); Calcium 10.1 mg/dL (8.4-10.2); Carbon Dioxide 27 mmol/L (22-29); Chloride 105 mmol/L (96-108); Cholesterol 163 mg/dL (<200); Estimated Glomerular Filt Rate > 60; Glucose Fasting 93 mg/dL (60-99); HDL Cholesterol 54 mg/dL (>40); LDL Cholesterol Calculated 99 mg/dL (<100); Potassium 3.5 mmol/L (3.3-5.1); Sodium 138 mmol/L (135-145); Total Protein 7.8 g/dL (6.5-8.0); Triglycerides 51 mg/dL (<150)
== END 2024-05-16 13:44 | disposition home or self-care (01) ==
LOC: HO.LAB 13:43
PROVIDERS: PCP Internal Medicine; Visit Provider Internal Medicine
DX: Z00.00 Encounter for general adult medical examination without abnormal findings (principal); Z13.6 Encounter for screening for cardiovascular disorders; Z13.0 Encounter for screening for diseases of the blood and blood-forming organs and certain disorders involving the immune mechanism; Z13.220 Encounter for screening for lipoid disorders; Z13.29 Encounter for screening for other suspected endocrine disorder
CPT/HCPCS: 36415; 80053; 80061; 84443; 85025; 96127; 99395